=== PATIENT | female | born 1985 | race Native Hawaiian/Other Pacific Islander ===

== ENCOUNTER 2016-11-08 16:54 | Emergency (ER) | payer OTHER ==
[~2016-11-08 16:54] MED LIST: AUGM875T27 PO; NORCOTAB PO; SENN1TAB2 PO
[2016-11-08] MEDS ORDERED: hydrOXYzine 25 MG TAB As Ordered ONE (19:03)
--- NOTE | 2016-11-08 19:11 | EDDOCDS ---
Nurse's Notes [facility] Name: Alexus Olson Age: 31 yrs Sex: Female : 1985 Arrival Date: 11/08/2016 Time: 16:54 Bed BHU1 Private MD: Jennifer [facility] Diagnosis: Adjustment disorder with anxiety Presentation: 11/08 17:00 Presenting complaint: states: Increased anxiety denies SI, not sleeping well. mlb1 Mental Health Triage Level: Level 1- Pt displays no suicidal or homicidal ideations and does not appear to be a danger to self or others. Adult Sepsis Screening: The patient does not have new or worsening altered mentation. Patient's respiratory rate is less than 22. Systolic blood pressure is greater than 100. Patient has a qSOFA score of 0- Negative Sepsis Screen. Suicide/Homicide risk assessment- the patient denies having any suicidal and/or homicidal ideations and does not present with any other emotional, behavioral or mental health complaints. Status: The patient is a dependent. Transition of care: patient was not received from another setting of care. 17:00 Acuity: LEROY Level 3 mlb1 17:00 Method Of Arrival: Walkin/Carried/Asstd mlb1 Triage Assessment: 17:03 General: Appears well groomed, Behavior is drowsy, quiet. Pain: Denies pain. HIV mlb1 screening NA for this visit Offered previously. Neurological: Level of Consciousness is awake, alert, Oriented to person, place, time, Speech is normal. Respiratory: Airway is patent Respiratory effort is even, unlabored. Historical: - Allergies: no known allergies; - Home Meds: 1. Nexium 20 mg Oral cpDR 1 cap once daily - PMHx: Schizo-Affective Disorder; GERD; - PSHx: oral surgery; - Social history: Smoking status: Patient states was never smoker of tobacco. No barriers to communication noted, The patient speaks fluent French, Speaks appropriately for age. - Family history: Not pertinent. - : The pt / caregiver states he / she is not on anticoagulants. Home medication list is obtained from the patient. - Exposure Risk Screening:: None identified. Screenin:10 Screening information is obtained from the patient. Fall risk: No risks identified. slm Assistance ADL's: requires no assistance with activities of daily living. Abuse/DV Screen: The patient / caregiver reports he/she is: not in a situation that causes fear, pain or injury. Nutritional screening: No deficits noted. Advance Directives: Currently, there is no health care proxy. There is no active DNR order. There is no living will. There is no Power of Rail Car Unloader. Advance directive information has not previously been placed in an [facility] medical record. Further advance directive information is declined. home support is adequate. Assessment: 19:09 General: Appears in no apparent distress, Behavior is appropriate for age, quiet, slm tearful. Respiratory: Airway is patent Respiratory effort is even, unlabored. Derm: Skin is pink, warm & dry. Social Work Consult: 19:01 Social Work Note: Met pt at bedside regarding anxiety. 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 She is overwhelmed with studies and is not getting enough sleep. 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 She and spouse are requesting medication to help her rest due to some racing thoughts. Pt appears to be stressed at bedside and is very tearful. Pt adamantly denies SI and HI. Spouse at bedside who does not have any safety concerns and is requesting pt to be discharged. 19:08 Social Work Note: Referrals for outpt services was given at bedside and directed to ml4 follow up with Jennifer for further tx. Vital Signs: 16:57 BP 154 / 92; Pulse 82; Resp 16; Temp 99.3(T); Pulse Ox 100% on R/A; Weight 74.93 kg sew (M); Height 5 ft. 3 in. (160.02 cm); Pain 0/10; 18:52 BP 142 / 75; Pulse 104; Resp 20; Temp 98.2(O); Pulse Ox 100% ; Pain 0/10; mas 16:57 Body Mass Index 29.26 (74.93 kg, 160.02 cm) sew Vitals: 16:57 Log In Time: November 08, 2016 at 16:54. RN notified that patient meets Red Flag sew criteria. ED Course: 16:57 Patient visited by Yaa Jewell. sew 16:57 KEO Rodriguez is Private Physician. sew 16:57 Patient moved to Waiting sew 16:58 Patient visited by Yaa Jewell. sew 16:58 Patient moved to Pre RCE sew 17:00 Patient visited by Patricio Burt RN. mlb1 17:02 Triage Initiated mlb1 17:04 Patient visited by Patricio Burt RN. mlb1 17:04 Patient moved to [facility] mlb1 17:05 Report received from rn - psych. triage level #1, no obs. req. at this time. pjf 17:07 Yaa Coulter MD is Attending Physician. sd1 17:07 Patient visited by Yaa Coulter MD. sd1 17:17 Patient visited by Allan Brand Security Aide. pjf 17:38 Patient visited by Allan Brand Security Aide. pjf 17:57 Patient visited by Allan Brand Security Aide. pjf 18:08 Patient visited by Allan Brand Security Aide. pjf 18:19 [facility] Payment Agreement was scanned into [employer] and attached to record. lg 18:28 Patient visited by Allan Brand Security Aide. pjf 18:31 Patient name changed from Alexus\S\\S\Urban-Chen\S\ to Alexus\S\ \S\Urban-Chen. EDMS 18:43 Patient visited by Allan Brand Security Aide. pjf 18:45 Jennifer [facility] is Referral Physician. sd1 18:45 Referral list, As provided by [facility] is Referral Physician. sd1 19:07 PSA Outpatient Referrals was scanned into [employer] and attached to record. ml4 19:08 Ann Weiss LPN is Primary Nurse. slm 19:10 No IV's were initiated during this patient's visit. No procedures done that require slm assistance. 19:11 Patient visited by Ann Weiss LPN. slm 19:11 The patient / caregiver is instructed regarding the plan of care and ED course. slm Administered Medications: 19:09 Drug: hydrOXYzine 25 mg [hydroxyzine HCl 25 mg tablet (1 tabs)] {Note: home with pt.} slm Route: PO; Order Results: There are currently no results for this order. Outcome: 18:45 Discharge ordered by Provider. sd1 19:10 Discharge Assessment: Patient awake, alert and oriented x 3. No cognitive and/or slm functional deficits noted. Patient verbalized understanding of disposition instructions. patient administered narcotics - no. The following High Risk Discharge criteria are identified: None. Discharged to home ambulatory, with significant other. Condition: good. Discharge instructions given to patient, family, Instructed on discharge instructions, follow up and referral plans. medication usage, Demonstrated understanding of instructions, medications, Pt was receptive of discharge instructions/ teaching. Prescriptions given X 1. No special radiology studies were completed. Property :Personal belongings accompany Pt. 19:11 Patient left the ED. slm Signatures: Dispatcher [employer] EDMS Yaa Coulter MD MD sd1 Pricila Gonzalez, Reg Reg lg Allan Brand, Security Aide Patricio Ramirez RN RN mlb1 Ailyn Weston, PSA PSA ml4 Cristiano, Yaa Torres Stephanie,[place] RAILROAD ACCOUNTANT slm Corrections: (The following items were deleted from the chart) 18:50 18:44 COMPLETE BLOOD COUNT+LAB sent. sd1 EDMS MTDD
--- NOTE | 2016-11-08 19:11 | EDDOCDS ---
Physician Documentation [facility] Name: Alexus Olson Age: 31 yrs Sex: Female : 1985 Arrival Date: 11/08/2016 Time: 16:54 Bed BHU1 Private MD: YAQUELIN Rodriguez Disposition: 11/08/16 18:45 Discharged to Home/Self Care. Impression: Adjustment disorder with anxiety. - Condition is Stable. - Discharge Instructions: Adjustment Disorder. - Prescriptions for Hydroxyzine HCl 25 mg Oral Tablet - take 1 tablet by ORAL route at bedtime As needed; 6 tablet. - Medication Reconciliation, Local Pharmacy Hours form. - Follow up: YAQUELIN Rodriguez; When: Call to arrange an appointment. Follow up: Referral list, As provided by PFS; When: Call to arrange an appointment. - Problem is new. - Symptoms have improved. Historical: - Allergies: no known allergies; - Home Meds: 1. Nexium 20 mg Oral cpDR 1 cap once daily - PMHx: Schizo-Affective Disorder; GERD; - PSHx: oral surgery; - Social history: Smoking status: Patient states was never smoker of tobacco. No barriers to communication noted, The patient speaks fluent Lao, Speaks appropriately for age. - Family history: Not pertinent. - : The pt / caregiver states he / she is not on anticoagulants. Home medication list is obtained from the patient. - Exposure Risk Screening:: None identified. Vital Signs: 11/08 16:57 BP 154 / 92; Pulse 82; Resp 16; Temp 99.3(T); Pulse Ox 100% on R/A; Weight 74.93 kg / sew 165.19 lbs (M); Height 5 ft. 3 in. (160.02 cm); Pain 0/10; 18:52 BP 142 / 75; Pulse 104; Resp 20; Temp 98.2(O); Pulse Ox 100% ; Pain 0/10; mas 16:57 Body Mass Index 29.26 (74.93 kg, 160.02 cm) sew MDM: 17:18 Consult PFS/PSA/Grinding Wheel Operator ordered. sd1 17:18 Consult PFS/PSA/Grinding Wheel Operator: Patient's case requires discussion with on-call sd1 Psychiatrist ordered. 17:18 PSA/PFS to call Nursing Meter Reading Clerk, to enter patient data on [place] if patient sd1 involuntarily admitted or transferred for SI or HI ordered. 17:18 Confirm accurate psychiatric medication list and times of last dosage ordered. sd1 17:18 Detain Pt Until Medically/PFS Cleared ordered. sd1 18:15 Financial registration complete. lg 18:19 [facility] Payment Agreement was scanned into [employer] and attached to record. lg 18:48 hydrOXYzine 25 mg PO once; to go ordered. sd1 19:07 [facility] Outpatient Referrals was scanned into [employer] and attached to record. ml4 19:10 Consult PFS/PSA/Grinding Wheel Operator complete. cl 19:10 Consult PFS/PSA/Grinding Wheel Operator: Patient's case requires discussion with on-call cl Psychiatrist complete. 19:10 PSA/PFS to call Nursing Meter Reading Clerk, to enter patient data [place] if patient cl involuntarily admitted or transferred for SI or HI complete. Administered Medications: 19:09 Drug: hydrOXYzine 25 mg [hydroxyzine HCl 25 mg tablet (1 tabs)] {Note: home with pt.} slm Route: PO; Signatures: Dispatcher [employer] Yaa Diggs MD MD sd1 Stephon Villagomez, PSA PSA cl Pricila Gonzalez, Kevin Reg lg Patricio Burt, RN RN mlb1 Ailyn Weston, PSA PSA ml4 Ann Weiss LPN LPN slm The chart was reviewed and I authenticate all verbal orders and agree with the evaluation and treatment provided.Corrections: (The following items were deleted from the chart) 18:46 17:19 ACETAMINOPHEN LEVEL+LAB ordered. EDMS EDMS 18:46 17:19 BASIC METABOLIC PROFILE+LAB ordered. EDMS EDMS 18:46 17:19 ETHYL ALCOHOL (ETHANOL)+LAB ordered. EDMS EDMS 18:46 17:19 HCG, QUALITATIVE+LAB ordered. EDMS EDMS 18:48 17:19 DRUG EVAL TOXICOLOGY ED ONLY+LAB ordered. EDMS EDMS 18:48 17:19 LIVER PROFILE+LAB ordered. EDMS EDMS 18:48 17:19 SALICYLATE LEVEL+LAB ordered. EDMS EDMS 18:48 17:19 THYROID STIMULATING HORMONE+LAB ordered. EDMS EDMS 18:50 17:19 COMPLETE BLOOD COUNT+LAB ordered. EDMS EDMS Attachments: 18:19 [facility] Payment Agreement lg MTDD
[2016-11-09] MEDS ORDERED: HYDR25T PO (20:06)
[2016-11-09] MEDS ORDERED: MIRA3350 PO (20:06)
[2016-11-09] MEDS ORDERED: NEXI20CA PO (20:06)
--- NOTE | 2016-11-10 20:12 | EDDOCDS ---
Physician Documentation [facility] Name: Alexus Olson Age: 31 yrs Sex: Female : 1985 Arrival Date: 11/08/2016 Time: 16:54 Bed BHU1 Private MD: YAQUELIN Rodriguez Disposition: 11/08/16 18:45 Discharged to Home/Self Care. Impression: Adjustment disorder with anxiety. - Condition is Stable. - Discharge Instructions: Adjustment Disorder. - Prescriptions for Hydroxyzine HCl 25 mg Oral Tablet - take 1 tablet by ORAL route at bedtime As needed; 6 tablet. - Medication Reconciliation, Local Pharmacy Hours form. - Follow up: YAQUELIN Rodriguez; When: Call to arrange an appointment. Follow up: Referral list, As provided by PFS; When: Call to arrange an appointment. - Problem is new. - Symptoms have improved. Historical: - Allergies: no known allergies; - Home Meds: 1. Nexium 20 mg Oral cpDR 1 cap once daily - PMHx: Schizo-Affective Disorder; GERD; - PSHx: oral surgery; - Social history: Smoking status: Patient states was never smoker of tobacco. No barriers to communication noted, The patient speaks fluent Peruvian, Speaks appropriately for age. - Family history: Not pertinent. - : The pt / caregiver states he / she is not on anticoagulants. Home medication list is obtained from the patient. - Exposure Risk Screening:: None identified. Vital Signs: 11/08 16:57 BP 154 / 92; Pulse 82; Resp 16; Temp 99.3(T); Pulse Ox 100% on R/A; Weight 74.93 kg / sew 165.19 lbs (M); Height 5 ft. 3 in. (160.02 cm); Pain 0/10; 18:52 BP 142 / 75; Pulse 104; Resp 20; Temp 98.2(O); Pulse Ox 100% ; Pain 0/10; mas 16:57 Body Mass Index 29.26 (74.93 kg, 160.02 cm) sew MDM: 17:18 Consult PFS/PSA/Rubber Chemist ordered. sd1 17:18 Consult PFS/PSA/Rubber Chemist: Patient's case requires discussion with on-call sd1 Psychiatrist ordered. 17:18 PSA/PFS to call Nursing Litigation Specialist, to enter [place] data [place] if patient sd1 involuntarily admitted or transferred for SI or HI ordered. 17:18 Confirm accurate psychiatric medication list and times of last dosage ordered. sd1 17:18 Detain Pt Until Medically/PFS Cleared ordered. sd1 18:15 Financial registration complete. lg 18:19 [facility] Payment Agreement was scanned into [employer] and attached to record. lg 18:48 hydrOXYzine 25 mg PO once; to go ordered. sd1 19:07 PSA Outpatient Referrals was scanned into [employer] and attached to record. ml4 19:10 Consult PFS/PSA/Rubber Chemist complete. cl 19:10 Consult PFS/PSA/Rubber Chemist: Patient's case requires discussion with on-call cl Psychiatrist complete. 19:10 PSA/PFS to call Nursing Litigation Specialist, to enter [place] data [place] if patient cl involuntarily admitted or transferred for SI or HI complete. 11/09 12:20 T-Sheet-- Draft Copy was scanned into [employer] and attached to record. gb Administered Medications: 11/08 19:09 Drug: hydrOXYzine 25 mg [hydroxyzine HCl 25 mg tablet (1 tabs)] {Note: home with pt.} slm Route: PO; Signatures: Dispatcher [employer] EDMS Yaa Coulter MD MD sd1 Stephon Villagomez, PSA PSA cl Leona Singleton, Reg Reg gb Pricila Gonzalez, Reg Reg lg Patricio Burt RN RN mlb1 Ailyn Weston, PSA PSA ml4 Ann Weiss LPN FINANCIAL SERVICES PROFESSIONAL slm The chart was reviewed and I authenticate all verbal orders and agree with the evaluation and treatment provided.Corrections: (The following items were deleted from the chart) 18:46 17:19 ACETAMINOPHEN LEVEL+LAB ordered. EDMS EDMS 18:46 17:19 BASIC METABOLIC PROFILE+LAB ordered. EDMS EDMS 18:46 17:19 ETHYL ALCOHOL (ETHANOL)+LAB ordered. EDMS EDMS 18:46 17:19 HCG, QUALITATIVE+LAB ordered. EDMS EDMS 18:48 17:19 DRUG EVAL TOXICOLOGY ED ONLY+LAB ordered. EDMS EDMS 18:48 17:19 LIVER PROFILE+LAB ordered. EDMS EDMS 18:48 17:19 SALICYLATE LEVEL+LAB ordered. EDMS EDMS 18:48 17:19 THYROID STIMULATING HORMONE+LAB ordered. EDMS EDMS 18:50 17:19 COMPLETE BLOOD COUNT+LAB ordered. EDMS EDMS Attachments: 18:19 [facility] Payment Agreement lg 11/09 12:20 T-Sheet-- Draft Copy gb Chart Complete MTDD
--- NOTE | 2016-11-10 20:12 | EDDOCDS ---
Nurse's Notes [facility] Name: Alexus Olson Age: 31 yrs Sex: Female : 1985 Arrival Date: 11/08/2016 Time: 16:54 Bed BHU1 Private MD: Jennifer [facility] Diagnosis: Adjustment disorder with anxiety Presentation: 11/08 17:00 Presenting complaint: states: Increased anxiety denies SI, not sleeping well. mlb1 Mental Health Triage Level: Level 1- Pt displays no suicidal or homicidal ideations and does not appear to be a danger to self or others. Adult Sepsis Screening: The patient does not have new or worsening altered mentation. Patient's respiratory rate is less than 22. Systolic blood pressure is greater than 100. Patient has a qSOFA score of 0- Negative Sepsis Screen. Suicide/Homicide risk assessment- the patient denies having any suicidal and/or homicidal ideations and does not present with any other emotional, behavioral or mental health complaints. Status: The patient is a dependent. Transition of care: patient was not received from another setting of care. 17:00 Acuity: LEROY Level 3 mlb1 17:00 Method Of Arrival: Walkin/Carried/Asstd mlb1 Triage Assessment: 17:03 General: Appears well groomed, Behavior is drowsy, quiet. Pain: Denies pain. HIV mlb1 screening NA for this visit Offered previously. Neurological: Level of Consciousness is awake, alert, Oriented to person, place, time, Speech is normal. Respiratory: Airway is patent Respiratory effort is even, unlabored. Historical: - Allergies: no known allergies; - Home Meds: 1. Nexium 20 mg Oral cpDR 1 cap once daily - PMHx: Schizo-Affective Disorder; GERD; - PSHx: oral surgery; - Social history: Smoking status: Patient states was never smoker of tobacco. No barriers to communication noted, The patient speaks fluent Luxembourgish, Speaks appropriately for age. - Family history: Not pertinent. - : The pt / caregiver states he / she is not on anticoagulants. Home medication list is obtained from the patient. - Exposure Risk Screening:: None identified. Screenin:10 Screening information is obtained from the patient. Fall risk: No risks identified. slm Assistance ADL's: requires no assistance with activities of daily living. Abuse/DV Screen: The patient / caregiver reports he/she is: not in a situation that causes fear, pain or injury. Nutritional screening: No deficits noted. Advance Directives: Currently, there is no health care proxy. There is no active DNR order. There is no living will. There is no Power of Sintering Plant Supervisor. Advance directive information has not previously been placed in an [facility] medical record. Further advance directive information is declined. home support is adequate. Assessment: 19:09 General: Appears in no apparent distress, Behavior is appropriate for age, quiet, slm tearful. Respiratory: Airway is patent Respiratory effort is even, unlabored. Derm: Skin is pink, warm & dry. Social Work Consult: 19:01 Social Work Note: Met pt at bedside regarding anxiety. 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 She is overwhelmed with studies and is not getting enough sleep. 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 She and spouse are requesting medication to help her rest due to some racing thoughts. Pt appears to be stressed at bedside and is very tearful. Pt adamantly denies SI and HI. Spouse at bedside who does not have any safety concerns and is requesting pt to be discharged. 19:08 Social Work Note: Referrals for outpt services was given at bedside and directed to ml4 follow up with Jennifer for further tx. Vital Signs: 16:57 BP 154 / 92; Pulse 82; Resp 16; Temp 99.3(T); Pulse Ox 100% on R/A; Weight 74.93 kg sew (M); Height 5 ft. 3 in. (160.02 cm); Pain 0/10; 18:52 BP 142 / 75; Pulse 104; Resp 20; Temp 98.2(O); Pulse Ox 100% ; Pain 0/10; mas 16:57 Body Mass Index 29.26 (74.93 kg, 160.02 cm) sew Vitals: 16:57 Log In Time: November 08, 2016 at 16:54. RN notified that patient meets Red Flag sew criteria. ED Course: 16:57 Patient visited by Yaa Jewell. sew 16:57 KEO Rodriguez is Private Physician. sew 16:57 Patient moved to Waiting sew 16:58 Patient visited by Yaa Jewell. sew 16:58 Patient moved to Pre RCE sew 17:00 Patient visited by Patricio Burt RN. mlb1 17:02 Triage Initiated mlb1 17:04 Patient visited by Patricio Burt RN. mlb1 17:04 Patient moved to [facility] mlb1 17:05 Report received from rn - psych. triage level #1, no obs. req. at this time. pjf 17:07 Yaa Coulter MD is Attending Physician. sd1 17:07 Patient visited by Yaa Coulter MD. sd1 17:17 Patient visited by Allan Brand Security Aide. pjf 17:38 Patient visited by Allan Brand Security Aide. pjf 17:57 Patient visited by Allan Brand Security Aide. pjf 18:08 Patient visited by Allan Brand Security Aide. pjf 18:19 [facility] Payment Agreement was scanned into [employer] and attached to record. lg 18:28 Patient visited by Allan Brand Security Aide. pjf 18:31 Patient name changed from Alexus\S\\S\Urban-Chen\S\ to Alexus\S\ \S\Urban-Chen. EDMS 18:43 Patient visited by Allan Brand Security Aide. pjf 18:45 Jennifer [facility] is Referral Physician. sd1 18:45 Referral list, As provided by [facility] is Referral Physician. sd1 19:07 PSA Outpatient Referrals was scanned into [employer] and attached to record. ml4 19:08 Ann Weiss LPN is Primary Nurse. slm 19:10 No IV's were initiated during this patient's visit. No procedures done that require slm assistance. 19:11 Patient visited by Ann Weiss LPN. slm 19:11 The patient / caregiver is instructed regarding the plan of care and ED course. sl 11/09 12:20 T-Sheet-- Draft Copy was scanned into [employer] and attached to record. gb Administered Medications: 11/08 19:09 Drug: hydrOXYzine 25 mg [hydroxyzine HCl 25 mg tablet (1 tabs)] {Note: home with pt.} slm Route: PO; Order Results: There are currently no results for this order. Outcome: 18:45 Discharge ordered by Provider. sd1 19:10 Discharge Assessment: Patient awake, alert and oriented x 3. No cognitive and/or slm functional deficits noted. Patient verbalized understanding of disposition instructions. patient administered narcotics - no. The following High Risk Discharge criteria are identified: None. Discharged to home ambulatory, with significant other. Condition: good. Discharge instructions given to patient, family, Instructed on discharge instructions, follow up and referral plans. medication usage, Demonstrated understanding of instructions, medications, Pt was receptive of discharge instructions/ teaching. Prescriptions given X 1. No special radiology studies were completed. Property :Personal belongings accompany Pt. 19:11 Patient left the ED. slm Signatures: Dispatcher [employer] EDMS Yaa Coulter MD MD sd1 Leona Singleton, Reg Reg gb Carlos, Pricila, Reg Reg lg Cathie, Allan, Security Aide Patricio Ramirez RN RN mlb1 Ailyn Weston, PSA PSA ml4 Jeff Quinonez Sarah sew McIntyre, Stephanie,BUCKLE FRAME SHAPER BUCKLE FRAME SHAPER slm Corrections: (The following items were deleted from the chart) 18:50 18:44 COMPLETE BLOOD COUNT+LAB sent. sd1 EDMS Chart Complete MTDD
--- NOTE | 2016-11-10 20:12 | EDDOCDS ---
Physician Documentation [facility] Name: Alexus Olson Age: 31 yrs Sex: Female : 1985 Arrival Date: 11/08/2016 Time: 16:54 Bed BHU1 Private MD: YAQUELIN Rodriguez Disposition: 11/08/16 18:45 Discharged to Home/Self Care. Impression: Adjustment disorder with anxiety. - Condition is Stable. - Discharge Instructions: Adjustment Disorder. - Prescriptions for Hydroxyzine HCl 25 mg Oral Tablet - take 1 tablet by ORAL route at bedtime As needed; 6 tablet. - Medication Reconciliation, Local Pharmacy Hours form. - Follow up: YAQUELIN Rodriguez; When: Call to arrange an appointment. Follow up: Referral list, As provided by PFS; When: Call to arrange an appointment. - Problem is new. - Symptoms have improved. Historical: - Allergies: no known allergies; - Home Meds: 1. Nexium 20 mg Oral cpDR 1 cap once daily - PMHx: Schizo-Affective Disorder; GERD; - PSHx: oral surgery; - Social history: Smoking status: Patient states was never smoker of tobacco. No barriers to communication noted, The patient speaks fluent Moldovan, Speaks appropriately for age. - Family history: Not pertinent. - : The pt / caregiver states he / she is not on anticoagulants. Home medication list is obtained from the patient. - Exposure Risk Screening:: None identified. Vital Signs: 11/08 16:57 BP 154 / 92; Pulse 82; Resp 16; Temp 99.3(T); Pulse Ox 100% on R/A; Weight 74.93 kg / sew 165.19 lbs (M); Height 5 ft. 3 in. (160.02 cm); Pain 0/10; 18:52 BP 142 / 75; Pulse 104; Resp 20; Temp 98.2(O); Pulse Ox 100% ; Pain 0/10; mas 16:57 Body Mass Index 29.26 (74.93 kg, 160.02 cm) sew MDM: 17:18 Consult PFS/PSA/Mailing Machine Helper ordered. sd1 17:18 Consult PFS/PSA/Mailing Machine Helper: Patient's case requires discussion with on-call sd1 Psychiatrist ordered. 17:18 PSA/PFS to call Nursing Stone Cutter, to enter [place] data [place] if patient sd1 involuntarily admitted or transferred for SI or HI ordered. 17:18 Confirm accurate psychiatric medication list and times of last dosage ordered. sd1 17:18 Detain Pt Until Medically/PFS Cleared ordered. sd1 18:15 Financial registration complete. lg 18:19 [facility] Payment Agreement was scanned into [employer] and attached to record. lg 18:48 hydrOXYzine 25 mg PO once; to go ordered. sd1 19:07 PSA Outpatient Referrals was scanned into [employer] and attached to record. ml4 19:10 Consult PFS/PSA/Mailing Machine Helper complete. cl 19:10 Consult PFS/PSA/Mailing Machine Helper: Patient's case requires discussion with on-call cl Psychiatrist complete. 19:10 PSA/PFS to call Nursing Stone Cutter, to enter [place] data [place] if patient cl involuntarily admitted or transferred for SI or HI complete. 11/09 12:20 T-Sheet-- Draft Copy was scanned into [employer] and attached to record. gb Administered Medications: 11/08 19:09 Drug: hydrOXYzine 25 mg [hydroxyzine HCl 25 mg tablet (1 tabs)] {Note: home with pt.} slm Route: PO; Signatures: Dispatcher [employer] EDMS Yaa Coulter MD MD sd1 Stephon Villagomez, PSA PSA cl Leona Singleton, Reg Reg gb Pricila Gonzalez, Reg Reg lg Patricio Burt RN RN mlb1 Ailyn Weston, PSA PSA ml4 Ann Weiss LPN CONGRESSIONAL AIDE slm The chart was reviewed and I authenticate all verbal orders and agree with the evaluation and treatment provided.Corrections: (The following items were deleted from the chart) 18:46 17:19 ACETAMINOPHEN LEVEL+LAB ordered. EDMS EDMS 18:46 17:19 BASIC METABOLIC PROFILE+LAB ordered. EDMS EDMS 18:46 17:19 ETHYL ALCOHOL (ETHANOL)+LAB ordered. EDMS EDMS 18:46 17:19 HCG, QUALITATIVE+LAB ordered. EDMS EDMS 18:48 17:19 DRUG EVAL TOXICOLOGY ED ONLY+LAB ordered. EDMS EDMS 18:48 17:19 LIVER PROFILE+LAB ordered. EDMS EDMS 18:48 17:19 SALICYLATE LEVEL+LAB ordered. EDMS EDMS 18:48 17:19 THYROID STIMULATING HORMONE+LAB ordered. EDMS EDMS 18:50 17:19 COMPLETE BLOOD COUNT+LAB ordered. EDMS EDMS Attachments: 18:19 [facility] Payment Agreement lg 11/09 12:20 T-Sheet-- Draft Copy gb Chart Complete MTDD
== END 2016-11-08 19:11 | disposition home or self-care (01) ==
LOC: M ED 16:54
DX: F43.20 Adjustment disorder, unspecified (principal); F25.9 Schizoaffective disorder, unspecified; K21.9 Gastro-esophageal reflux disease without esophagitis; Z79.899 Other long term (current) drug therapy

== ENCOUNTER 2016-11-09 12:08 | Inpatient (IN) | payer OTHER ==
[~2016-11-09] VITALS: Ht 160 cm; Wt 73.5 kg
[2016-11-09 13:12] LABS: MEAN CORPUSCULAR HEMOGLOBIN 28.7 pg (27.0-33.0); MEAN CORPUSCULAR HGB CONC 33.2 g/dl (32.0-36.5); MEAN CORPUSCULAR VOLUME 86.6 fl (80.0-96.0); RED CELL DISTRIBUTION WIDTH 12.6 % (11.5-14.5); WHITE BLOOD COUNT 9.1 K/mm3 (4.0-10.0)
[2016-11-09 13:42] LABS: ALBUMIN/GLOBULIN RATIO 0.83 (1.00-1.93); ALKALINE PHOSPHATASE 70 U/L (45-117); ALT/SGPT 31 U/L (12-78); ANION GAP 10 MEQ/L (8-16); AST/SGOT 14 U/L (15-37); BILIRUBIN,DIRECT 0.2 MG/DL (0.0-0.2); BILIRUBIN,TOTAL 0.6 MG/DL (0.2-1.0); BLOOD UREA NITROGEN 12 MG/DL (7-18); CALCIUM LEVEL 8.6 MG/DL (8.5-10.1); CARBON DIOXIDE LEVEL 26 MEQ/L (21-32); CHLORIDE LEVEL 104 MEQ/L (98-107); CREATININE FOR GFR 0.81 MG/DL (0.55-1.02); GLOMERULAR FILTRATION RATE > 60.0 (>60); GLUCOSE, FASTING 86 MG/DL (70-105); POTASSIUM SERUM 3.5 MEQ/L (3.5-5.1); SODIUM LEVEL 140 MEQ/L (136-145); TOTAL PROTEIN 8.8 GM/DL (6.4-8.2)
[2016-11-09 15:39] LABS: AMPHETAMINES LEVEL URINE NEGATIVE (NEGATIVE); BENZODIAZEPINES URINE NEGATIVE (NEGATIVE); COCAINE METABOLITE URINE NEGATIVE (NEGATIVE); CONTROL LINE INT CTR LINE PRESENT; METHADONE URINE NEGATIVE (NEGATIVE); OPIATES URINE NEGATIVE (NEGATIVE); TRICYCLIC ANTIDEPRESS URINE NEGATIVE (NEGATIVE)
[2016-11-09] MEDS ORDERED: NEXI20CA PO (20:06)
[2016-11-09] MEDS ORDERED: HYDR25T PO (20:06)
[2016-11-09] MEDS ORDERED: MIRA3350 PO (20:06)
--- NOTE | 2016-11-09 21:27 | EDDOCDS ---
Physician Documentation [facility] Name: Alexus Olson Age: 31 yrs Sex: Female : 1985 Arrival Date: 11/09/2016 Time: 12:08 Bed [facility] Private MD: Galen Jackson J Disposition: 11/09/16 19:03 Hospitalization ordered by Braden Keen for Inpatient Admission. Preliminary diagnosis is Schizoaffective disorder, bipolar type. - Bed requested for Admit. - Status is Inpatient Admission. rw1 - Condition is Stable. - Problem is an acute exacerbation. - Symptoms are unchanged. Historical: - Allergies: no known allergies; - Home Meds: 1. Nexium 20 mg Oral cpDR 1 cap once daily 2. Fiber Therapy Laxative (husk) 0.52 gram oral cap 3. hydroxyzine HCl 25 mg Oral tab 1 tab nightly as needed - PMHx: Schizo-Affective Disorder; GERD; - PSHx: oral surgery; - Social history: Smoking status: Patient states was never smoker of tobacco. No barriers to communication noted, The patient speaks fluent Italian, Speaks appropriately for age. - Family history: Not pertinent. - : The pt / caregiver states he / she is not on anticoagulants. Home medication list is obtained from the patient. - Exposure Risk Screening:: None identified. EMT/DISPATCHER: 11/09 16:04 LMP 09/2016 ttb Vital Signs: 12:29 Pulse 95 MON; Pulse Ox 95% ; ttb 12:30 BP 136 / 90; Pulse 95 MON; Resp 20; Pulse Ox 100% on R/A; Pain 0/10; ttb 12:42 Temp 99.3(TE); Weight 72.57 kg / 159.99 lbs; Height 5 ft. 3 in. (160.02 cm); rn1 13:00 Pulse 87 MON; Pulse Ox 95% ; ttb 13:30 Pulse 111 MON; Resp 20 S; Pulse Ox 99% on R/A; ttb 15:30 BP 128 / 76 (auto/); ttb 15:30 Pulse 81 MON; Resp 18 S; Pulse Ox 99% on R/A; Pain 0/10; ttb 20:59 BP 136 / 82; Pulse 75; Resp 16; Temp 97.9(O); Pulse Ox 98% on R/A; Pain 0/10; rw1 12:42 Body Mass Index 28.34 (72.57 kg, 160.02 cm) rn1 MDM: 12:42 Consult PFS/PSA/Game Warden ordered. le 12:42 Consult PFS/PSA/Game Warden: Patient's case requires discussion with on-call le Psychiatrist ordered. 12:42 PSA/PFS to call Nursing Farmer Diversified Crops, to enter [place] if patient le involuntarily admitted or transferred for SI or HI ordered. 12:42 Confirm accurate psychiatric medication list and times of last dosage ordered. le 12:42 Detain Pt Until Medically/PFS Cleared ordered. le 12:42 IV Saline Lock ordered. le 12:43 Acetaminophen Level Ordered. EDMS 12:43 Basic Metabolic Profile Ordered. EDMS 12:43 Complete Blood Count Ordered. EDMS 12:43 Drug Eval Toxicology ED Only Ordered. EDMS 12:43 Ethyl Alcohol (ethanol) Ordered. EDMS 12:43 Liver Profile Ordered. EDMS 12:43 Salicylate Level Ordered. EDMS 12:43 Thyroid Stimulating Hormone Ordered. EDMS 12:43 ECG WITH READING ER PHYS+CARDIAG ordered. EDMS 14:16 Acetaminophen Level Reviewed. le 14:16 Complete Blood Count Reviewed. le 14:16 Liver Profile Reviewed. le 14:16 Salicylate Level Reviewed. le 14:16 Basic Metabolic Profile Reviewed. le 14:16 Ethyl Alcohol (ethanol) Reviewed. le 14:16 Thyroid Stimulating Hormone Reviewed. le 15:50 Drug Eval Toxicology ED Only Reviewed. le 15:52 The patient has been medically cleared for psychiatric evaluation, admission and/or le transfer. 16:01 [facility] [place] Payment Agreement was scanned into aCon and attached to record. jp5 16:01 Financial registration complete. jp5 17:14 REGULAR DIET PLASTIC STONE+DIET ordered. EDMS 18:09 Consult PFS/PSA/Game Warden complete. ms 18:09 Consult PFS/PSA/Game Warden: Patient's case requires discussion with on-call ms Psychiatrist complete. 18:09 PSA/PFS to call Nursing Farmer D[employer]ified Crops, to [place] if patient ms involuntarily admitted or transferred for SI or HI complete. 19:32 Admit to [facility]: ordered. EDMS 19:54 [facility] Legal paperwork was scanned into [employer]Con and attached to record. ms Signatures: Dispatcher [employer]Host EDMS Constance Gamez, RN RN srm Del, Aida, PSA PSA ms Slick,Carlos,CLIENT CARE CONSULTANT CLIENT CARE CONSULTANT rw1 Haydee Sanders, CHIEF OF PEDIATRIC UROLOGY CHIEF OF PEDIATRIC UROLOGY Chuyita Marquez RN RN hs1 Megan Brunner RN RN ttb Julio C Pretty jp5 The chart was reviewed and I authenticate all verbal orders and agree with the evaluation and treatment provided.Corrections: (The following items were deleted from the chart) 16:49 14:17 Straight cath ordered. diego salcido Attachments: 16:01 [facility] Payment Agreement jp5 MTDD
--- NOTE | 2016-11-09 21:28 | EDDOCDS ---
Nurse's Notes [facility] Name: Alexus Olson Age: 31 yrs Sex: Female : 1985 Arrival Date: 11/09/2016 Time: 12:08 Bed [facility] Private MD: Galen Jackson J Diagnosis: Schizoaffective disorder, bipolar type Presentation: 11/09 12:09 Presenting complaint: EMS states: pt admitted to take one of her husbands "avtar" meds srm and hydroxyzine that we prescribed yesterday. pt drowsy on arrival. told ems " i feel like im going to . i want to ". Adult Sepsis Screening: The patient does not have new or worsening altered mentation. Patient's respiratory rate is less than 22. Systolic blood pressure is greater than 100. Patient has a qSOFA score of 0- Negative Sepsis Screen. Suicide/Homicide risk assessment- The patient admits to and/or has been reported to be having suicidal ideations. Suicide/Homicide risk assessment- Status: The patient is a dependent. Transition of care: patient was not received from another setting of care. Care prior to arrival: Glucose check. 88. 12:09 Acuity: LEROY Level [address] [facility] 12:09 Method Of Arrival: Ambulance [facility] 12:12 Suicide/Homicide risk assessment- [facility] Triage Assessment: 12:12 General: Appears in no apparent distress, Behavior is listless. HIV screening NA for srm this visit Offered previously. 12:12 General: pt not answering questions without encouragement. [facility] SEAT MAKER: 16:04 LMP 09/2016 ttb Historical: - Allergies: no known allergies; - Home Meds: 1. Nexium 20 mg Oral cpDR 1 cap once daily 2. Fiber Therapy Laxative (husk) 0.52 gram oral cap 3. hydroxyzine HCl 25 mg Oral tab 1 tab nightly as needed - PMHx: Schizo-Affective Disorder; GERD; - PSHx: oral surgery; - Social history: Smoking status: Patient states was never smoker of tobacco. No barriers to communication noted, The patient speaks fluent Belgian, Speaks appropriately for age. - Family history: Not pertinent. - : The pt / caregiver states he / she is not on anticoagulants. Home medication list is obtained from the patient. - Exposure Risk Screening:: None identified. Screenin:30 Screening information is obtained from the patient. Fall risk: At risk due to apparent ttb chemical impairment, gait disturbance, The following interventions are performed due to a positive Fall Risk Screen: Fall Risk is added to Special Handling on the patient Summary Screen. A Fall Risk Bracelet was applied to the patient. Side Rails are placed in the up position. A Call Aaron is given with instruction to call for help when getting out of bed. Assistance ADL's: requires no assistance with activities of daily living. Abuse/DV Screen: The patient / caregiver reports he/she is: pt cannot be assessed for living situation at this time. Unable to Assess. Nutritional screening: No deficits noted. Advance Directives: Currently, there is no health care proxy. home support is adequate. Assessment: 12:35 General: Appears distressed, well nourished, well groomed, Behavior is crying, ttb inappropriate for age, listless, quiet, uncooperative. Pain: Denies pain. Neurological: Level of Consciousness is awake, lethargic, Speech is normal, slowed. Cardiovascular: Heart tones S1 S2 present Rhythm is sinus tachycardia Chest pain is denied. Respiratory: No deficits noted. Airway is patent Respiratory effort is even, unlabored, Respiratory pattern is regular, symmetrical, Breath sounds are clear bilaterally. Denies cough, shortness of breath. GI: Denies nausea, vomiting, pain. Derm: Skin is normal. Injury Description: No known injury. 12:35 Neurological: Pupils are pinpoint. ttb 12:40 General: pt states she took 1 hydroxyzine this morning and a "clonazapam or lorazapam" ttb last night. Denies any other substances this morning. Pt able to look at phone and recall password however will not look at me when I am addressing her. Slow to answer questions, answers appropriately, minimally. Requests who is in [facility]. . 13:30 Reassessment: Patient denies pain at this time. pt continues to rest on stretcher. NAD ttb noted. Continues to be tearful and intermittently crying. . 13:30 Cardiovascular: Rhythm is sinus tachycardia No ectopy. Chest pain is denied. ttb Respiratory: No deficits noted. Airway is patent Respiratory effort is even, unlabored. GI: Denies nausea, vomiting. 14:15 General: pt ambulated to with steady gait. continues to request . Forgetful. ttb Unable to give urine sample at this time. Missed cup. NAD noted. . 15:17 General: Pt ambulated to bathroom to provide urine specimen. Gait steady. Pt returned ld5 to room and is currently laying quietly in bed. Will continue to monitor. 16:02 Reassessment: Patient appears in no apparent distress at this time. Patient denies pain ttb at this time. Patient states feeling better. Patient states symptoms have improved. pt more appropriate now. Continues to ask for . Denies pain. . General: Appears in no apparent distress, comfortable. General: CN stated pt cleared for room change to U. Pain: Denies pain. Neurological: Level of Consciousness is awake, alert. Cardiovascular: Rhythm is sinus rhythm Chest pain is denied. Respiratory: Airway is patent Respiratory effort is even, unlabored, Denies cough, shortness of breath. GI: Denies nausea, vomiting, pain. 16:30 General: Appears Behavior is Smells of Denies arrived- he was unaware that pt srm took any of his medicine and when asked what it was he states clonazepam 0.5mg. BEEF TRIMMER aware and crying at this time but is supportive and attentive. 17:31 General: Appears in no apparent distress, comfortable, Behavior is cooperative, crying, pml fussy. Neurological: Level of Consciousness is awake, alert, Oriented to person, place, time. Cardiovascular: Capillary refill < 3 seconds. Respiratory: Airway is patent Respiratory effort is even, unlabored. Derm: Skin is pink, warm & dry. 18:44 General: resting on stretcher, resps easy and unlabored, SO at bedside. skin p/w/d. pml dinner provided. 19:50 General: Appears in no apparent distress, comfortable, Behavior is cooperative, crying. rw1 Pain: Denies pain. Neurological: Level of Consciousness is awake, alert, Oriented to person, place, time. Respiratory: Airway is patent Respiratory effort is even, unlabored. Derm: Skin is pink, warm & dry. normal. 20:49 Reassessment: Patient appears in no apparent distress at this time. Patient denies pain rw1 at this time. awake resting quietly on stretcher, safety maintained will monitor.. Mental Health Eval: 18:09 Mental health consult is initiated at 17:25. Status: The patient is a ms dependent. [facility] Behavioral Health: The patient is not an established patient of [facility] Behavioral Health. Referral Information: Evaluation referral is generated by The patient was referred for evaluation because Pt. was at school([employer]) when teacher noticed pt. not acting right and ambulance was called. Pt. told friend she has taken one hydroxyzine and one Lorazepam(spouses). 18:12 Subjective: The patients chief complaint is Pt. reports she has been feeling very ms overwhelmed, feeling as though something bad is going to happen. She reports that she is in [employer] program, is about to graduate with honors and does not deserve to be successful . She reports due to inability to sleep lately, she took pills today. She reports though should took pills before going to her exam today at [facility] because she just wanted to sleep. Pt. states she was trying to hurt self because she doesn't deserve to be successful. She stated she wanted to go to sleep and not wake up. Pt. reports having several 'breakdowns in the past( most recent 2010) and has schizoaffective diagnoses. She reports she has not taken medications for such since 2010 and until recently has been feeling well. . Delusions are paranoid, Patient's mood is anxious, depressed, Hallucinations are denied. Pt. spouse, Tristin, states that pt. has been having difficulty sleeping with increasing anxiety and paranoia since 10/27. He reports that she has been paranoid that people are talking about her and looking at her. Spouse states that pt. has been paranoid that he will leave her and that his parents who reside with them, are against her. He reports that for last couple of days, he has had to assist her with getting dressed and washing self because she has not been caring for herself as usual. 18:26 Mental Health history: Schizoaffective . Mental Health Admissions: Unable to Obtain. ms Current Outpatient Mental Health Services: None. Current living environment is The patient currently lives with his / her spouse, Tristin . Patient presents to Emergency Department with the following symptoms within the past 2 weeks: anxiety, decreased appetite, depressed mood, feelings of helplessness/hopelessness, paranoia, poor concentration, sleep disturbance - insomnia, suicidal ideation with attempt/gesture by pills. Substance abuse: E-cigs. Mental status exam: Patients appearance is appropriate, Patient's behavior is cooperative, Speech is normal. Affect is appropriate. Mood is depressed. Hallucinations are denied. Appetite is poor. Memory is fair. Energy level is normal. Content of thought is paranoid. pt. believes people are talking about her, looking at her Thought process is intact. Cognitive level is oriented to person, place, time and situation Patient's insight is fair. Judgement is poor. Rapport with interviewer is guarded. Suicidal Ideation present with a plan to kill self by pills. Homicidal ideation is denied. 19:19 Disposition: Medically cleared for disposition by Haydee DISLA Psychiatric Consult ms is performed by phone with Dr Braden Keen MD. [facility] Admission Criteria: The patient is experiencing suicidal ideation. The patient displays symptoms of severe psychiatric disorder resulting in disordered behavior and significant interference with his / her ability to maintain self care. Severe Anxiety. The patient requires continuous observation and/or control to protect self, others or property. Legal Status: Patient's legal status will be Emergency admission: . [place] Safe Act: [place] Safe Act is applicable to this patient. The patient poses a risk to self or other and the Nursing United States Attorney has been notified. He/She will enter the patient's data. Insurance Pre-Certification: Not Required. Vital Signs: 12:29 Pulse 95 MON; Pulse Ox 95% ; ttb 12:30 BP 136 / 90; Pulse 95 MON; Resp 20; Pulse Ox 100% on R/A; Pain 0/10; ttb 12:42 Temp 99.3(TE); Weight 72.57 kg; Height 5 ft. 3 in. (160.02 cm); rn1 13:00 Pulse 87 MON; Pulse Ox 95% ; ttb 13:30 Pulse 111 MON; Resp 20 S; Pulse Ox 99% on R/A; ttb 15:30 BP 128 / 76 (auto/); ttb 15:30 Pulse 81 MON; Resp 18 S; Pulse Ox 99% on R/A; Pain 0/10; ttb 20:59 BP 136 / 82; Pulse 75; Resp 16; Temp 97.9(O); Pulse Ox 98% on R/A; Pain 0/10; rw1 12:42 Body Mass Index 28.34 (72.57 kg, 160.02 cm) rn1 Vitals: 12:12 Log In Time N/A - ambulance arrival. [facility] ED Course: 12:09 Patient visited by Rosa Celestin, Rewrite Editor. lbd 12:09 Galen Jackson is Private Physician. lbd 12:09 Patient moved to Waiting lbd 12:09 Patient moved to 2 lbd 12:[address] [facility] 12:30 The patient / caregiver is instructed regarding the plan of care and ED course. Patient ttb has correct armband on for positive identification. Placed in psych safe attire. Bed in low position. Call light in reach. Side rails up X2. playground monitor on. Pulse ox on. NIBP on. 12:37 Haydee Sanders FNP is PHCP. le 12:46 Inserted saline lock: 20 gauge in right and blood collected. The patient tolerated the [facility] procedure well. wrist. 12:52 Patient visited by Haydee Sanders FNP. le 13:02 EKG done. (by ED staff). Reviewed by Haydee DISLA. rn1 13:26 Property removed, inventory done, secured in belongings bag- placed in locked storage dpm room. unknown who observed pt changing. Property inventoried 1 hour after pt was changed. Property left at charge station then brought to Security aide to be inventoried . 13:59 Patient visited by Megan Brunner RN. ttb 14:21 Patient visited by Megan Brunner RN. ttb 15:17 Drug Eval Toxicology ED Only Sent. ld5 15:18 Patient visited by Perla Hughes,SANDRA. ld5 15:30 Discontinued IV lock intact, bleeding controlled, pressure dressing applied, No ttb redness/swelling at site. No procedures done that require assistance. 16:01 [facility] Payment Agreement was scanned into [employer] and attached to record. jp5 16:04 Patient visited by Megan Brunner RN. ttb 16:31 Patient visited by Constance Gamez, SANDRA. srm 16:34 Patient visited by Megan Brunner RN. ttb 17:07 Patient name changed from Alexus\\S\\\\S\\Urban-Chen\\S\\ to Alexus\\S\\ \\S\\Urban-Chen. EDMS 17:13 Patient moved to [facility] pml 17:14 Patient visited by Radha Walsh,SANDRA. pml 17:18 Patient visited by José Antonio Hagan. dpm 17:30 Patient visited by José Antonio Hagan. dpm 17:32 Patient visited by Radha Walsh RN. pml 17:46 Patient visited by José Antonio Hagan. dpm 18:05 Patient visited by José Atnonio Hagan. dpm 18:31 Patient visited by José Antonio Hagan. dpm 18:44 Patient visited by Radha Walsh RN. pml 18:55 Patient visited by José Antonio Hagan. dpm 19:02 Carlos Kruger LPN is Primary Nurse. rw1 19:03 Braden Keen MD is Hospitalizing Provider. le 19:18 Patient visited by José Antonio Hagan. dpm 19:45 Patient visited by Warner Aldana. tr 19:54 [facility] Legal paperwork was scanned into [employer] and attached to record. ms 20:16 Patient visited by Warner Aldana. tr 21:00 Patient visited by Warner Aldana. tr Attachments: 19:54 E Legal paperwork ms Order Results: Lab Order: Acetaminophen Level; SPEC'M 11/09/16 12:46 Test: ACETAMINOPHEN LEVEL; Value: < 2.0; Range: 10.0-30.0; Abnormal: Below low normal; Units: UG/ML; Status: F Lab Order: Basic Metabolic Profile; SPEC'M 11/09/16 12:46 Test: GLUCOSE, FASTING; Value: 86; Range: 70-105; Units: MG/DL; Status: F Test: BLOOD UREA NITROGEN; Value: 12; Range: 7-18; Units: MG/DL; Status: F Test: CREATININE FOR GFR; Value: 0.81; Range: 0.55-1.02; Units: MG/DL; Status: F Test: GLOMERULAR FILTRATION RATE; Value: > 60.0; Range: >60; Status: F Test: SODIUM LEVEL; Value: 140; Range: 136-145; Units: MEQ/L; Status: F Test: POTASSIUM SERUM; Value: 3.5; Range: 3.5-5.1; Units: MEQ/L; Status: F Test: CHLORIDE LEVEL; Value: 104; Range: 98-107; Units: MEQ/L; Status: F Test: CARBON DIOXIDE LEVEL; Value: 26; Range: 21-32; Units: MEQ/L; Status: F Test: ANION GAP; Value: 10; Range: 8-16; Units: MEQ/L; Status: F Test: CALCIUM LEVEL; Value: 8.6; Range: 8.5-10.1; Units: MG/DL; Status: F Test Note: ; Units are mL/min/1.73 m2 Chronic Kidney Disease Staging per NKF: Stage I & II GFR >=60 Normal to Mildly Decreased Stage III GFR 30-59 Moderately Decreased Stage IV GFR 15-29 Severely Decreased Stage V GFR <15 Very Little GFR Left ESRD GFR <15 on COMMUNICATIONS MEDIA PROFESSOR Lab Order: Complete Blood Count; SPEC'M 11/09/16 12:46 Test: WHITE BLOOD COUNT; Value: 9.1; Range: 4.0-10.0; Units: K/mm3; Status: F Test: RED BLOOD COUNT; Value: 4.90; Range: 4.00-5.40; Units: M/mm3; Status: F Test: HEMOGLOBIN; Value: 14.1; Range: 12.0-16.0; Units: g/dl; Status: F Test: HEMATOCRIT; Value: 42.5; Range: 36.0-47.0; Units: %; Status: F Test: MEAN CORPUSCULAR VOLUME; Value: 86.6; Range: 80.0-96.0; Units: fl; Status: F Test: MEAN CORPUSCULAR HEMOGLOBIN; Value: 28.7; Range: 27.0-33.0; Units: pg; Status: F Test: MEAN CORPUSCULAR HGB CONC; Value: 33.2; Range: 32.0-36.5; Units: g/dl; Status: F Test: RED CELL DISTRIBUTION WIDTH; Value: 12.6; Range: 11.5-14.5; Units: %; Status: F Test: PLATELET COUNT, AUTOMATED; Value: 458; Range: 150-450; Abnormal: Above high normal; Units: k/mm3; Status: F Lab Order: Drug Eval Toxicology ED Only; SPEC'M 11/09/16 14:12 Test: AMPHETAMINES LEVEL URINE; Value: NEGATIVE; Range: NEGATIVE; Status: F Test: BARBITURATES URINE; Value: NEGATIVE; Range: NEGATIVE; Status: F Test: BENZODIAZEPINES URINE; Value: NEGATIVE; Range: NEGATIVE; Status: F Test: CANNABINOIDS URINE; Value: NEGATIVE; Range: NEGATIVE; Status: F Test: COCAINE METABOLITE URINE; Value: NEGATIVE; Range: NEGATIVE; Status: F Test: METHADONE URINE; Value: NEGATIVE; Range: NEGATIVE; Status: F Test: OPIATES URINE; Value: NEGATIVE; Range: NEGATIVE; Status: F Test: TRICYCLIC ANTIDEPRESS URINE; Value: NEGATIVE; Range: NEGATIVE; Status: F Test Note: ; ALL PRESUMPTIVE POSITIVE FINDINGS ARE UNCONFIRMED NORMAL VALUES THRESHOLD IN NG/ML AMPHETAMINES 1000 METHAMPHETAMINES 1000 BARBITURATES 300 BENZODIAZEPINES 300 CANNABINOIDS (THC) 50 COCAINE METABOLITE 300 METHADONE 300 OPIATES 300 PHENCYCLIDINE 25 TRICYCLIC ANTIDEPRESSANTS 1000 RESULTS ARE FOR MEDICAL PURPOSES ONLY. ALL URINE SPECIMENS WILL BE SAVED FOR 3 DAYS. IF CONFIRMATION OF A PRESUMPTIVE POSTIVE SCREEN RESULT IS DESIRED, CALL CHEMISTRY ([phone]) AND REQUEST URINE TO BE SENT TO REFERENCE LAB. FOR A LIST OF CLOSELY RELATED COMPOUNDS PLEASE CALL THE LAB. Lab Order: Ethyl Alcohol (ethanol); SPEC'M 11/09/16 12:46 Test: ETHYL ALCOHOL (ETHANOL); Value: < 0.003; Range: 0.000-0.010; Units: %; Status: F Lab Order: Liver Profile; SPEC'M 11/09/16 12:46 Test: AST/SGOT; Value: 14; Range: 15-37; Abnormal: Below low normal; Units: U/L; Status: F Test: ALT/SGPT; Value: 31; Range: 12-78; Units: U/L; Status: F Test: ALKALINE PHOSPHATASE; Value: 70; Range: 45-117; Units: U/L; Status: F Test: BILIRUBIN,TOTAL; Value: 0.6; Range: 0.2-1.0; Units: MG/DL; Status: F Test: BILIRUBIN,DIRECT; Value: 0.2; Range: 0.0-0.2; Units: MG/DL; Status: F Test: TOTAL PROTEIN; Value: 8.8; Range: 6.4-8.2; Abnormal: Above high normal; Units: GM/DL; Status: F Test: ALBUMIN; Value: 4.0; Range: 3.2-5.2; Units: GM/DL; Status: F Test: ALBUMIN/GLOBULIN RATIO; Value: 0.83; Range: 1.00-1.93; Abnormal: Below low normal; Status: F Lab Order: Salicylate Level; SPEC'M 11/09/16 12:46 Test: SALICYLATE LEVEL; Value: < 1.7; Range: 5.0-30.0; Abnormal: Below low normal; Units: MG/DL; Status: F Lab Order: Thyroid Stimulating Hormone; SPEC'M 11/09/16 12:46 Test: THYROID STIMULATING HORMONE; Value: 1.480; Range: 0.358-3.740; Units: uIU/ML; Status: F Outcome: 15:30 No special radiology studies were completed. ttb 19:03 Decision to Hospitalize by Provider. le 20:59 Discharge Assessment: Patient awake, alert and oriented x 3. No cognitive and/or rw1 functional deficits noted. Patient verbalized understanding of disposition instructions. patient administered narcotics - no. The following High Risk Discharge criteria are identified: Admitted to Psych accompanied by tech, via wheelchair, with chart. Condition: stable. 21:26 Patient left the ED. rw1 Signatures: Dispatcher [employer] EDMS Rosa Celestin, Rewrite Editor Unit lbd Constance Gamez RN RN [facility], Noam, PSA PSA jl Aida Mathis, PSA PSA ms Katya, Warner Carlos Tran LPN LPN rw1 Haydee Sanders, BEEF TRIMMER BEEF TRIMMER Perla Byrd RN RN ld5 Chuyita Eduardo RN RN hs1 Radha Walsh RN RN pml Marolf, Dustin dpMegan Wiseman RN RN ttCarlos Paris rn1 Julio C Pretty jp5 Corrections: (The following items were deleted from the chart) 18:26 18:12 Subjective: The patients chief complaint is Pt. reports she has been feeling very ms overwhelmed, feeling as though something bad is going to happen. She reports that she is in [employer] program, is about to graduate with honors and does not deserve to be successful . She reports due to inability to sleep lately, she took pills today. She reports though should took pills before going to her exam today at [facility] because she just wanted to sleep. Pt. states she was trying to hurt self because she doesn't deserve to be successful. She stated she wanted to go to sleep and not wake up. Pt. reports having several 'breakdowns in the past( most recent 2010) and has schizoaffective diagnoses.. ms : 19:10 Disposition: Medically cleared for disposition by Haydee Sanders BEEF TRIMMER Psychiatric ms Consult is performed by phone with Dr Braden Keen MD 19:10 [facility] Admission Criteria: The patient is experiencing suicidal ideation. The ms patient requires continuous observation and/or control to protect self, others or property. : 19:10 Legal Status: Patient's legal status will be Emergency admission: .39. key ms 19:10 [place] Safe Act: [place] Safe Act is applicable to this patient. The patient poses a ms risk to self or other and the Nursing United States Attorney has been notified. He/She will enter the patient's data. 19:10 Insurance Pre-Certification: Not Required, key ms MTDD
[2016-11-09] MEDS ORDERED: MIRALAX *UNIT DOSE* 17GM PACKET PO PRN (22:15)
[2016-11-09] MEDS ORDERED: MAALOX 30 ML SUSP *UDC PO PRN (22:15)
[2016-11-09] MEDS ORDERED: MOM 30ML SUSPENSION UDC PO PRN (22:15)
[2016-11-09] MEDS ORDERED: ACETAMINOPHEN TAB 650MG DOSE (2X325MG) PO PRN (22:15)
[2016-11-10] MEDS: traZODone 50 MG TAB PO PRN (00:35)
--- NOTE | 2016-11-10 04:40 | HPE ---
DATE OF ADMISSION: 11/09/2016 HISTORY OF PRESENT ILLNESS: Please refer to psychiatric history and evaluation for further details on this admission. This examination and history is intended for medical issues, which may need treatment, followup or consult on this 31-year-old female. ALLERGIES: No known allergies. SOCIAL HISTORY: She is . 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 She was acting strangely there today and was brought to the emergency room. Ethyl alcohol (EtOH) none. Smokes electronic (E) cigarettes. Recreational drug use: None. PAST MEDICAL HISTORY: 1. Schizoaffective disorder. 2. Gastroesophageal reflux disease (GERD). PAST SURGICAL HISTORY: 1. Oral surgery. 2. Appendectomy. HOME MEDICATIONS: - Nexium 20 mg by mouth daily - MiraLAX one packet 17 grams by mouth daily as needed for constipation - hydroxyzine 25 mg by mouth nightly as needed for anxiety FAMILY HISTORY: Noncontributory. LABORATORY STUDIES: WBC 9.1, hemoglobin 14.1, hematocrit 42.5, platelets 458. Electrolytes normal. Toxicology screen negative. REVIEW OF SYSTEMS: Patient was crying, but she did answer a few simple questions. She denied any headache, nausea, vomiting, diarrhea. No chest pain or shortness of breath. She allowed us a limited physical exam. PHYSICAL EXAMINATION: 31-year-old female who is quiet and crying at times. Height 63 inches, weight 72.57 kg, body mass index (BMI) 28.3. Blood pressure 155/90. Patient was alert and oriented to person. Neck was supple without lymphadenopathy. No thyromegaly, no goiter. Chest was clear to auscultation without wheeze or retraction. Heart was regular. She moved all extremities equally well, spontaneously with purpose. She was assisted into lie down. She was crying less. Skin was warm and dry. IMPRESSION: 1. Psychiatric plan per psychiatry. 2. History of gastroesophageal reflux disease (GERD). Will continue Nexium. 3. Will recheck blood pressure when patient is less upset.
[2016-11-10 06:46] VITALS: BP 121/67
--- NOTE | 2016-11-10 08:07 | ECGEPIP ---
Stationary ECG Study [facility] - ED Test Date: 2016-11-09 Pat Name: JESUS FORD Department: Room: - Gender: F Lead Web Developer: : 1985 Requested By: DAT DISLA Order Number: [id number] Reading MD: Yaa Coulter Measurements Intervals [place] Rate: 85 P: 51 VA: 128 QRS: 68 QRSD: 89 T: -8 QT: 353 QTc: 421 Interpretive Statements SINUS RHYTHM NONSPECIFIC T-WAVE ABNORMALITY NO PRIOR FOR COMPARISON Electronically Signed On 11-10-2016 8:06:42 EST by Yaa Coulter
[2016-11-10] MEDS: hydrOXYzine 25 MG TAB PO PRN (08:56)
[2016-11-10] MEDS ORDERED: CitaloPRAM (CeleXA) 10 MG TABLET PO SCH (09:00)
[2016-11-10] MEDS: PANTOPRAZOLE 20 MG TAB PO SCH (09:00)
[2016-11-10] MEDS: risperiDONE 2 MG TAB PO SCH ×2 (12:55→22:23)
[2016-11-10 18:00] VITALS: BP 137/91
--- NOTE | 2016-11-10 19:21 | MHHPE ---
DATE OF ADMISSION: 11/09/2016 LEGAL STATUS ON ADMISSION: 9.39 legal status CHIEF COMPLAINT: The patient is selectively mute. HISTORY OF PRESENT ILLNESS: 31-year-old female with a history of schizoaffective disorder, admitted to our unit on a 9.39 legal status. 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 During the evaluation in the emergency room, it is stated that the patient is feeling "very overwhelmed" as though something bad was going to happen. She is in the [employer] program and is about to graduate with honors. The patient reports an inability to sleep lately. She took pills today before going to her examination at [facility]. The patient stated that she wanted to go to sleep and not wake up. Also, that she does not deserve to be successful. The patient was treated for schizoaffective disorder in 2010, but since then has not been in treatment or taking medications and apparently doing well. The patient reported paranoid delusions for a couple of days. The patient has been needing to get assistance for getting dressed and has not been caring for herself as usual. Her spouse Tristin said that she has been having difficulty sleeping, having increasing anxiety and paranoia since 10/27/2016. She has been paranoid about him leaving her or her parents who live with them that she believes that they are against her. Tristin said that the patient has been anxious and depressed. During the interview today, the patient is sitting up in the bed. She is selectively mute and unable to answer questions. I could not gather any information from the patient today. PSYCHIATRIC HISTORY: As above. According to the chart, the patient has schizoaffective disorder. PAST MEDICAL HISTORY: According to the chart, the patient suffers from gastroesophageal reflux disease (GERD) and is on Nexium 20 mg daily. No information could be gathered from the patient. FAMILY HISTORY: Unable to obtain. SOCIAL HISTORY: Unable to obtain. SUBSTANCE ABUSE HISTORY: Unable to obtain. REVIEW OF SYSTEMS: The patient is uncooperative. PHYSICAL EXAMINATION: As per physician orthotics assistant. LABORATORY DATA: Complete blood count (CBC) is unremarkable except platelet count of 458. CMP is unremarkable. TSH within normal limits. Urine drug screen is negative. Blood alcohol level is negative. MENTAL STATUS EXAMINATION: The patient is dressed in [facility]. The patient is selectively mute. Not able to cooperate with mental status examination. DIAGNOSES: AXIS I: Schizoaffective disorder, by history. AXIS II: Deferred. AXIS III: Gastroesophageal reflux disease (GERD). INITIAL TREATMENT PLAN: The patient was admitted on a 9.39 legal status. Complete history could not be obtained because the patient is not cooperative. With her permission, family will be contacted and database will be expanded. Her medication regimen will be reviewed and accordingly. She will be provided with protective environment. She will be treated with individual, group and milieu therapy. She will also receive supportive psychoeducation. Discharge planning will commence immediately. Length of stay will be between 7 and 10 days. Outpatient followup will be strongly recommended. The treatment plan will focus initially on depression, altered thoughts, altered perceptions, self care deficit.
[2016-11-11 06:00] VITALS: BP 136/71
[2016-11-11 07:48] LABS: MEAN CORPUSCULAR HGB CONC 31.7 g/dl (32.0-36.5); RED CELL DISTRIBUTION WIDTH 13.5 % (11.5-14.5); WHITE BLOOD COUNT 8.4 K/mm3 (4.0-10.0)
[2016-11-11 07:53] LABS: MEAN CORPUSCULAR VOLUME 91.6 fl (80.0-96.0)
[2016-11-11 08:03] LABS: ALBUMIN 3.6 GM/DL (3.2-5.2); ALBUMIN/GLOBULIN RATIO 0.97 (1.00-1.93); ALKALINE PHOSPHATASE 68 U/L (45-117); ALT/SGPT 25 U/L (12-78); ANION GAP 9 MEQ/L (8-16); AST/SGOT 12 U/L (15-37); BILIRUBIN,TOTAL 0.8 MG/DL (0.2-1.0); BLOOD UREA NITROGEN 14 MG/DL (7-18); CALCIUM LEVEL 8.9 MG/DL (8.5-10.1); CARBON DIOXIDE LEVEL 27 MEQ/L (21-32); CHLORIDE LEVEL 103 MEQ/L (98-107); CREATININE FOR GFR 0.81 MG/DL (0.55-1.02); GLOMERULAR FILTRATION RATE > 60.0 (>60); GLUCOSE, FASTING 80 MG/DL (70-105); POTASSIUM SERUM 3.9 MEQ/L (3.5-5.1); SODIUM LEVEL 139 MEQ/L (136-145); TOTAL PROTEIN 7.3 GM/DL (6.4-8.2)
[2016-11-11] MEDS: PANTOPRAZOLE 20 MG TAB PO SCH ×3 (10:08→10:14)
[2016-11-11] MEDS: CitaloPRAM (CeleXA) 20 MG TAB PO SCH ×2 (10:08→10:14)
[2016-11-11] MEDS: risperiDONE 2 MG TAB PO SCH ×3 (10:08→21:08)
[2016-11-11 18:00] VITALS: BP 122/68
[2016-11-11] MEDS: traZODone 50 MG TAB PO PRN (21:08)
--- NOTE | 2016-11-11 22:27 | EDDOCDS ---
Nurse's Notes [facility] Name: Alexus Olson Age: 31 yrs Sex: Female : 1985 Arrival Date: 11/09/2016 Time: 12:08 Bed [facility] Private MD: Galen Jackson J Diagnosis: Schizoaffective disorder, bipolar type Presentation: 11/09 12:09 Presenting complaint: EMS states: pt admitted to take one of her husbands "avtar" meds srm and hydroxyzine that we prescribed yesterday. pt drowsy on arrival. told ems " i feel like im going to . i want to ". Adult Sepsis Screening: The patient does not have new or worsening altered mentation. Patient's respiratory rate is less than 22. Systolic blood pressure is greater than 100. Patient has a qSOFA score of 0- Negative Sepsis Screen. Suicide/Homicide risk assessment- The patient admits to and/or has been reported to be having suicidal ideations. Suicide/Homicide risk assessment- Status: The patient is a dependent. Transition of care: patient was not received from another setting of care. Care prior to arrival: Glucose check. 88. 12:09 Acuity: LEROY Level 3 [facility] 12:09 Method Of Arrival: Ambulance [facility] 12:12 Suicide/Homicide risk assessment- [facility] Triage Assessment: 12:12 General: Appears in no apparent distress, Behavior is listless. HIV screening NA for srm this visit Offered previously. 12:12 General: pt not answering questions without encouragement. [facility] AUDIO VISUAL SECRETARY: 16:04 LMP 09/2016 ttb Historical: - Allergies: no known allergies; - Home Meds: 1. Nexium 20 mg Oral cpDR 1 cap once daily 2. Fiber Therapy Laxative (husk) 0.52 gram oral cap 3. hydroxyzine HCl 25 mg Oral tab 1 tab nightly as needed - PMHx: Schizo-Affective Disorder; GERD; - PSHx: oral surgery; - Social history: Smoking status: Patient states was never smoker of tobacco. No barriers to communication noted, The patient speaks fluent Nauruan, Speaks appropriately for age. - Family history: Not pertinent. - : The pt / caregiver states he / she is not on anticoagulants. Home medication list is obtained from the patient. - Exposure Risk Screening:: None identified. Screenin:30 Screening information is obtained from the patient. Fall risk: At risk due to apparent ttb chemical impairment, gait disturbance, The following interventions are performed due to a positive Fall Risk Screen: Fall Risk is added to Special Handling on the patient Summary Screen. A Fall Risk Bracelet was applied to the patient. Side Rails are placed in the up position. A Call Aaron is given with instruction to call for help when getting out of bed. Assistance ADL's: requires no assistance with activities of daily living. Abuse/DV Screen: The patient / caregiver reports he/she is: pt cannot be assessed for living situation at this time. Unable to Assess. Nutritional screening: No deficits noted. Advance Directives: Currently, there is no health care proxy. home support is adequate. Assessment: 12:35 General: Appears distressed, well nourished, well groomed, Behavior is crying, ttb inappropriate for age, listless, quiet, uncooperative. Pain: Denies pain. Neurological: Level of Consciousness is awake, lethargic, Speech is normal, slowed. Cardiovascular: Heart tones S1 S2 present Rhythm is sinus tachycardia Chest pain is denied. Respiratory: No deficits noted. Airway is patent Respiratory effort is even, unlabored, Respiratory pattern is regular, symmetrical, Breath sounds are clear bilaterally. Denies cough, shortness of breath. GI: Denies nausea, vomiting, pain. Derm: Skin is normal. Injury Description: No known injury. 12:35 Neurological: Pupils are pinpoint. ttb 12:40 General: pt states she took 1 hydroxyzine this morning and a "clonazapam or lorazapam" ttb last night. Denies any other substances this morning. Pt able to look at phone and recall password however will not look at me when I am addressing her. Slow to answer questions, answers appropriately, minimally. Requests who is in [facility]. . 13:30 Reassessment: Patient denies pain at this time. pt continues to rest on stretcher. NAD ttb noted. Continues to be tearful and intermittently crying. . 13:30 Cardiovascular: Rhythm is sinus tachycardia No ectopy. Chest pain is denied. ttb Respiratory: No deficits noted. Airway is patent Respiratory effort is even, unlabored. GI: Denies nausea, vomiting. 14:15 General: pt ambulated to with steady gait. continues to request . Forgetful. ttb Unable to give urine sample at this time. Missed cup. NAD noted. . 15:17 General: Pt ambulated to bathroom to provide urine specimen. Gait steady. Pt returned ld5 to room and is currently laying quietly in bed. Will continue to monitor. 16:02 Reassessment: Patient appears in no apparent distress at this time. Patient denies pain ttb at this time. Patient states feeling better. Patient states symptoms have improved. pt more appropriate now. Continues to ask for . Denies pain. . General: Appears in no apparent distress, comfortable. General: CN stated pt cleared for room change to U. Pain: Denies pain. Neurological: Level of Consciousness is awake, alert. Cardiovascular: Rhythm is sinus rhythm Chest pain is denied. Respiratory: Airway is patent Respiratory effort is even, unlabored, Denies cough, shortness of breath. GI: Denies nausea, vomiting, pain. 16:30 General: Appears Behavior is Smells of Denies arrived- he was unaware that pt srm took any of his medicine and when asked what it was he states clonazepam 0.5mg. MYCOLOGIST aware and crying at this time but is supportive and attentive. 17:31 General: Appears in no apparent distress, comfortable, Behavior is cooperative, crying, pml fussy. Neurological: Level of Consciousness is awake, alert, Oriented to person, place, time. Cardiovascular: Capillary refill < 3 seconds. Respiratory: Airway is patent Respiratory effort is even, unlabored. Derm: Skin is pink, warm & dry. 18:44 General: resting on stretcher, resps easy and unlabored, SO at bedside. skin p/w/d. pml dinner provided. 19:50 General: Appears in no apparent distress, comfortable, Behavior is cooperative, crying. rw1 Pain: Denies pain. Neurological: Level of Consciousness is awake, alert, Oriented to person, place, time. Respiratory: Airway is patent Respiratory effort is even, unlabored. Derm: Skin is pink, warm & dry. normal. 20:49 Reassessment: Patient appears in no apparent distress at this time. Patient denies pain rw1 at this time. awake resting quietly on stretcher, safety maintained will monitor.. Mental Health Eval: 18:09 Mental health consult is initiated at 17:25. Status: The patient is a ms dependent. [facility] Behavioral Health: The patient is not an established patient of [facility] Behavioral Health. Referral Information: Evaluation referral is generated by The patient was referred for evaluation because Pt. was at school([employer]) when teacher noticed pt. not acting right and ambulance was called. Pt. told friend she has taken one hydroxyzine and one Lorazepam(spouses). 18:12 Subjective: The patients chief complaint is Pt. reports she has been feeling very ms overwhelmed, feeling as though something bad is going to happen. She reports that she is in [employer] program, is about to graduate with honors and does not deserve to be successful . She reports due to inability to sleep lately, she took pills today. She reports though should took pills before going to her exam today at [facility] because she just wanted to sleep. Pt. states she was trying to hurt self because she doesn't deserve to be successful. She stated she wanted to go to sleep and not wake up. Pt. reports having several 'breakdowns in the past( most recent 2010) and has schizoaffective diagnoses. She reports she has not taken medications for such since 2010 and until recently has been feeling well. . Delusions are paranoid, Patient's mood is anxious, depressed, Hallucinations are denied. Pt. spouse, Tristin, states that pt. has been having difficulty sleeping with increasing anxiety and paranoia since 10/27. He reports that she has been paranoid that people are talking about her and looking at her. Spouse states that pt. has been paranoid that he will leave her and that his parents who reside with them, are against her. He reports that for last couple of days, he has had to assist her with getting dressed and washing self because she has not been caring for herself as usual. 18:26 Mental Health history: Schizoaffective . Mental Health Admissions: Unable to Obtain. ms Current Outpatient Mental Health Services: None. Current living environment is The patient currently lives with his / her spouse, Tristin . Patient presents to Emergency Department with the following symptoms within the past 2 weeks: anxiety, decreased appetite, depressed mood, feelings of helplessness/hopelessness, paranoia, poor concentration, sleep disturbance - insomnia, suicidal ideation with attempt/gesture by pills. Substance abuse: E-cigs. Mental status exam: Patients appearance is appropriate, Patient's behavior is cooperative, Speech is normal. Affect is appropriate. Mood is depressed. Hallucinations are denied. Appetite is poor. Memory is fair. Energy level is normal. Content of thought is paranoid. pt. believes people are talking about her, looking at her Thought process is intact. Cognitive level is oriented to person, place, time and situation Patient's insight is fair. Judgement is poor. Rapport with interviewer is guarded. Suicidal Ideation present with a plan to kill self by pills. Homicidal ideation is denied. 19:19 Disposition: Medically cleared for disposition by Haydee DISLA Psychiatric Consult ms is performed by phone with Dr Braden Keen MD. [facility] Admission Criteria: The patient is experiencing suicidal ideation. The patient displays symptoms of severe psychiatric disorder resulting in disordered behavior and significant interference with his / her ability to maintain self care. Severe Anxiety. The patient requires continuous observation and/or control to protect self, others or property. Legal Status: Patient's legal status will be Emergency admission: . [place] Safe Act: [place] Safe Act is applicable to this patient. The patient poses a risk to self or other and the Nursing Dragger Out has been notified. He/She will enter the patient's data. Insurance Pre-Certification: Not Required. Vital Signs: 12:29 Pulse 95 MON; Pulse Ox 95% ; ttb 12:30 BP 136 / 90; Pulse 95 MON; Resp 20; Pulse Ox 100% on R/A; Pain 0/10; ttb 12:42 Temp 99.3(TE); Weight 72.57 kg; Height 5 ft. 3 in. (160.02 cm); rn1 13:00 Pulse 87 MON; Pulse Ox 95% ; ttb 13:30 Pulse 111 MON; Resp 20 S; Pulse Ox 99% on R/A; ttb 15:30 BP 128 / 76 (auto/); ttb 15:30 Pulse 81 MON; Resp 18 S; Pulse Ox 99% on R/A; Pain 0/10; ttb 20:59 BP 136 / 82; Pulse 75; Resp 16; Temp 97.9(O); Pulse Ox 98% on R/A; Pain 0/10; rw1 12:42 Body Mass Index 28.34 (72.57 kg, 160.02 cm) rn1 Vitals: 12:12 Log In Time N/A - ambulance arrival. [facility] ED Course: 12:09 Patient visited by Rosa Celestin, Clothing And Textiles Teacher. lbd 12:09 Galen Jackson is Private Physician. lbd 12:09 Patient moved to Waiting lbd 12:09 Patient moved to 2 lbd 12:11 Triage Initiated [facility] 12:30 The patient / caregiver is instructed regarding the plan of care and ED course. Patient ttb has correct armband on for positive identification. Placed in psych safe attire. Bed in low position. Call light in reach. Side rails up X2. property assessment monitor on. Pulse ox on. NIBP on. 12:37 Haydee Sanders FNP is PHCP. le 12:46 Inserted saline lock: 20 gauge in right and blood collected. The patient tolerated the [facility] procedure well. wrist. 12:52 Patient visited by Haydee Sanders FNP. le 13:02 EKG done. (by ED staff). Reviewed by Haydee DISLA. rn1 13:26 Property removed, inventory done, secured in belongings bag- placed in locked storage dpm room. unknown who observed pt changing. Property inventoried 1 hour after pt was changed. Property left at charge station then brought to Security aide to be inventoried . 13:59 Patient visited by Megan Brunner RN. ttb 14:21 Patient visited by Megan Brunner RN. ttb 15:17 Drug Eval Toxicology ED Only Sent. ld5 15:18 Patient visited by Perla Hughes,SANDRA. ld5 15:30 Discontinued IV lock intact, bleeding controlled, pressure dressing applied, No ttb redness/swelling at site. No procedures done that require assistance. 16:01 [facility] Payment Agreement was scanned into [employer] and attached to record. jp5 16:04 Patient visited by Megan Brunner RN. ttb 16:31 Patient visited by Constance Gamez, SANDRA. srm 16:34 Patient visited by Megan Brunner RN. ttb 17:07 Patient name changed from Alexus\\S\\\\S\\Urban-Chen\\S\\ to Alexus\\S\\ \\S\\Urban-Chen. EDMS 17:13 Patient moved to [facility] pml 17:14 Patient visited by Radha Walsh,SANDRA. pml 17:18 Patient visited by José Antonio Hagan. dpm 17:30 Patient visited by José Antonio Hagan. dpm 17:32 Patient visited by Radha Walsh RN. pml 17:46 Patient visited by José Antonio Hagan. dpm 18:05 Patient visited by José Antonio Hagan. dpm 18:31 Patient visited by José Antonio Hagan. dpm 18:44 Patient visited by Radha Walsh RN. pml 18:55 Patient visited by José Antonio Hagan. dpm 19:02 Carlos Kruger LPN is Primary Nurse. rw1 19:03 Braden Keen MD is Hospitalizing Provider. le 19:18 Patient visited by José Antonio Hagan. dpm 19:45 Patient visited by Warner Aldana. tr 19:54 E Legal paperwork was scanned into [employer] and attached to record. ms 20:16 Patient visited by Warner Aldana. tr 21:00 Patient visited by Warner Aldana. tr 11/10 12:56 T-Sheet-- Draft Copy was scanned into [employer] and attached to record. gb 12:56 ECG/EKG was scanned into [employer] and attached to record. gb 12:56 Trend VS was scanned into [employer] and attached to record. gb Attachments: 19:54 E Legal paperwork ms 12:56 Trend VS gb Order Results: Lab Order: Acetaminophen Level; SPEC'M 11/09/16 12:46 Test: ACETAMINOPHEN LEVEL; Value: < 2.0; Range: 10.0-30.0; Abnormal: Below low normal; Units: UG/ML; Status: F Lab Order: Basic Metabolic Profile; SPEC'M 11/09/16 12:46 Test: GLUCOSE, FASTING; Value: 86; Range: 70-105; Units: MG/DL; Status: F Test: BLOOD UREA NITROGEN; Value: 12; Range: 7-18; Units: MG/DL; Status: F Test: CREATININE FOR GFR; Value: 0.81; Range: 0.55-1.02; Units: MG/DL; Status: F Test: GLOMERULAR FILTRATION RATE; Value: > 60.0; Range: >60; Status: F Test: SODIUM LEVEL; Value: 140; Range: 136-145; Units: MEQ/L; Status: F Test: POTASSIUM SERUM; Value: 3.5; Range: 3.5-5.1; Units: MEQ/L; Status: F Test: CHLORIDE LEVEL; Value: 104; Range: 98-107; Units: MEQ/L; Status: F Test: CARBON DIOXIDE LEVEL; Value: 26; Range: 21-32; Units: MEQ/L; Status: F Test: ANION GAP; Value: 10; Range: 8-16; Units: MEQ/L; Status: F Test: CALCIUM LEVEL; Value: 8.6; Range: 8.5-10.1; Units: MG/DL; Status: F Test Note: ; Units are mL/min/1.73 m2 Chronic Kidney Disease Staging per NKF: Stage I & II GFR >=60 Normal to Mildly Decreased Stage III GFR 30-59 Moderately Decreased Stage IV GFR 15-29 Severely Decreased Stage V GFR <15 Very Little GFR Left ESRD GFR <15 on [employer] Lab Order: Complete Blood Count; SPEC'M 11/09/16 12:46 Test: WHITE BLOOD COUNT; Value: 9.1; Range: 4.0-10.0; Units: K/mm3; Status: F Test: RED BLOOD COUNT; Value: 4.90; Range: 4.00-5.40; Units: M/mm3; Status: F Test: HEMOGLOBIN; Value: 14.1; Range: 12.0-16.0; Units: g/dl; Status: F Test: HEMATOCRIT; Value: 42.5; Range: 36.0-47.0; Units: %; Status: F Test: MEAN CORPUSCULAR VOLUME; Value: 86.6; Range: 80.0-96.0; Units: fl; Status: F Test: MEAN CORPUSCULAR HEMOGLOBIN; Value: 28.7; Range: 27.0-33.0; Units: pg; Status: F Test: MEAN CORPUSCULAR HGB CONC; Value: 33.2; Range: 32.0-36.5; Units: g/dl; Status: F Test: RED CELL DISTRIBUTION WIDTH; Value: 12.6; Range: 11.5-14.5; Units: %; Status: F Test: PLATELET COUNT, AUTOMATED; Value: 458; Range: 150-450; Abnormal: Above high normal; Units: k/mm3; Status: F Lab Order: Drug Eval Toxicology ED Only; SPEC'M 11/09/16 14:12 Test: AMPHETAMINES LEVEL URINE; Value: NEGATIVE; Range: NEGATIVE; Status: F Test: BARBITURATES URINE; Value: NEGATIVE; Range: NEGATIVE; Status: F Test: BENZODIAZEPINES URINE; Value: NEGATIVE; Range: NEGATIVE; Status: F Test: CANNABINOIDS URINE; Value: NEGATIVE; Range: NEGATIVE; Status: F Test: COCAINE METABOLITE URINE; Value: NEGATIVE; Range: NEGATIVE; Status: F Test: METHADONE URINE; Value: NEGATIVE; Range: NEGATIVE; Status: F Test: OPIATES URINE; Value: NEGATIVE; Range: NEGATIVE; Status: F Test: TRICYCLIC ANTIDEPRESS URINE; Value: NEGATIVE; Range: NEGATIVE; Status: F Test Note: ; ALL PRESUMPTIVE POSITIVE FINDINGS ARE UNCONFIRMED NORMAL VALUES THRESHOLD IN NG/ML AMPHETAMINES 1000 METHAMPHETAMINES 1000 BARBITURATES 300 BENZODIAZEPINES 300 CANNABINOIDS (THC) 50 COCAINE METABOLITE 300 METHADONE 300 OPIATES 300 PHENCYCLIDINE 25 TRICYCLIC ANTIDEPRESSANTS 1000 RESULTS ARE FOR MEDICAL PURPOSES ONLY. ALL URINE SPECIMENS WILL BE SAVED FOR 3 DAYS. IF CONFIRMATION OF A PRESUMPTIVE POSTIVE SCREEN RESULT IS DESIRED, CALL CHEMISTRY ([phone]) AND REQUEST URINE TO BE SENT TO REFERENCE LAB. FOR A LIST OF CLOSELY RELATED COMPOUNDS PLEASE CALL THE LAB. Lab Order: Ethyl Alcohol (ethanol); SPEC'M 11/09/16 12:46 Test: ETHYL ALCOHOL (ETHANOL); Value: < 0.003; Range: 0.000-0.010; Units: %; Status: F Lab Order: Liver Profile; SPEC'M 11/09/16 12:46 Test: AST/SGOT; Value: 14; Range: 15-37; Abnormal: Below low normal; Units: U/L; Status: F Test: ALT/SGPT; Value: 31; Range: 12-78; Units: U/L; Status: F Test: ALKALINE PHOSPHATASE; Value: 70; Range: 45-117; Units: U/L; Status: F Test: BILIRUBIN,TOTAL; Value: 0.6; Range: 0.2-1.0; Units: MG/DL; Status: F Test: BILIRUBIN,DIRECT; Value: 0.2; Range: 0.0-0.2; Units: MG/DL; Status: F Test: TOTAL PROTEIN; Value: 8.8; Range: 6.4-8.2; Abnormal: Above high normal; Units: GM/DL; Status: F Test: ALBUMIN; Value: 4.0; Range: 3.2-5.2; Units: GM/DL; Status: F Test: ALBUMIN/GLOBULIN RATIO; Value: 0.83; Range: 1.00-1.93; Abnormal: Below low normal; Status: F Lab Order: Salicylate Level; SPEC'M 11/09/16 12:46 Test: SALICYLATE LEVEL; Value: < 1.7; Range: 5.0-30.0; Abnormal: Below low normal; Units: MG/DL; Status: F Lab Order: Thyroid Stimulating Hormone; SPEC'M 11/09/16 12:46 Test: THYROID STIMULATING HORMONE; Value: 1.480; Range: 0.358-3.740; Units: uIU/ML; Status: F Outcome: 11/09 15:30 No special radiology studies were completed. ttb 19:03 Decision to Hospitalize by Provider. le 20:59 Discharge Assessment: Patient awake, alert and oriented x 3. No cognitive and/or rw1 functional deficits noted. Patient verbalized understanding of disposition instructions. patient administered narcotics - no. The following High Risk Discharge criteria are identified: Admitted to Psych accompanied by tech, via wheelchair, with chart. Condition: stable. 21:26 Patient left the ED. rw1 Signatures: Dispatcher [employer] EDMS Rosa Celestin, Clothing And Textiles Teacher Unit lbd Constance Gamez RN RN [facility], Noam, PSA PSA Del Aida, PSA PSA ms Areli, Leona, Reg Reg gb Aldana, Warner tr Carlos Kruger,[place] [employer] rw1 Haydee Sanders, MYCOLOGIST MYCOLOGIST Perla Byrd RN RN ld5 Chuyita Eduardo RN RN hs1 Radha Walsh RN RN pml Marolf, Dustin dpm Conner, Teresa, RN RN ttCarlos Paris rn1 Julio C Pretty jp5 Corrections: (The following items were deleted from the chart) 18:26 18:12 Subjective: The patients chief complaint is Pt. reports she has been feeling very ms overwhelmed, feeling as though something bad is going to happen. She reports that she is in [employer] program, is about to graduate with honors and does not deserve to be successful . She reports due to inability to sleep lately, she took pills today. She reports though should took pills before going to her exam today at [facility] because she just wanted to sleep. Pt. states she was trying to hurt self because she doesn't deserve to be successful. She stated she wanted to go to sleep and not wake up. Pt. reports having several 'breakdowns in the past( most recent 2010) and has schizoaffective diagnoses.. ms 19:20 19:10 Disposition: Medically cleared for disposition by Haydee Sanders MYCOLOGIST Psychiatric ms Consult is performed by phone with Dr Braden Keen MD : 19:10 [facility] Admission Criteria: The patient is experiencing suicidal ideation. The ms patient requires continuous observation and/or control to protect self, others or property. jl 19:20 19:10 Legal Status: Patient's legal status will be Emergency admission: 9.39. key ms : 19:10 [place] Safe Act: [place] Safe Act is applicable to this patient. The patient poses a ms risk to self or other and the Nursing Dragger Out has been notified. He/She will enter the patient's data. 19:20 19:10 Insurance Pre-Certification: Not Required, key ms Chart Complete MTDD
--- NOTE | 2016-11-11 22:27 | EDDOCDS ---
Physician Documentation [facility] Name: Alexus Olson Age: 31 yrs Sex: Female : 1985 Arrival Date: 11/09/2016 Time: 12:[address] [facility] Private MD: Galen Jackson J Disposition: 11/09/16 19:03 Hospitalization ordered by Braden Keen for Inpatient Admission. Preliminary diagnosis is Schizoaffective disorder, bipolar type. - Bed requested for Admit. - Status is Inpatient Admission. rw1 - Condition is Stable. - Problem is an acute exacerbation. - Symptoms are unchanged. Historical: - Allergies: no known allergies; - Home Meds: 1. Nexium 20 mg Oral cpDR 1 cap once daily 2. Fiber Therapy Laxative (husk) 0.52 gram oral cap 3. hydroxyzine HCl 25 mg Oral tab 1 tab nightly as needed - PMHx: Schizo-Affective Disorder; GERD; - PSHx: oral surgery; - Social history: Smoking status: Patient states was never smoker of tobacco. No barriers to communication noted, The patient speaks fluent Belarusian, Speaks appropriately for age. - Family history: Not pertinent. - : The pt / caregiver states he / she is not on anticoagulants. Home medication list is obtained from the patient. - Exposure Risk Screening:: None identified. CHILD NUTRITION DIRECTOR: 11/09 16:04 LMP 09/2016 ttb Vital Signs: 12:29 Pulse 95 MON; Pulse Ox 95% ; ttb 12:30 BP 136 / 90; Pulse 95 MON; Resp 20; Pulse Ox 100% on R/A; Pain 0/10; ttb 12:42 Temp 99.3(TE); Weight 72.57 kg / 159.99 lbs; Height 5 ft. 3 in. (160.02 cm); rn1 13:00 Pulse 87 MON; Pulse Ox 95% ; ttb 13:30 Pulse 111 MON; Resp 20 S; Pulse Ox 99% on R/A; ttb 15:30 BP 128 / 76 (auto/); ttb 15:30 Pulse 81 MON; Resp 18 S; Pulse Ox 99% on R/A; Pain 0/10; ttb 20:59 BP 136 / 82; Pulse 75; Resp 16; Temp 97.9(O); Pulse Ox 98% on R/A; Pain 0/10; rw1 12:42 Body Mass Index 28.34 (72.57 kg, 160.02 cm) rn1 MDM: 12:42 Consult PFS/PSA/Film Laboratory Technician ordered. le 12:42 Consult PFS/PSA/Film Laboratory Technician: Patient's case requires discussion with on-call le Psychiatrist ordered. 12:42 PSA/PFS to call Nursing Vermin Exterminator, to enter patient data on [place] if patient le involuntarily admitted or transferred for SI or HI ordered. 12:42 Confirm accurate psychiatric medication list and times of last dosage ordered. le 12:42 Detain Pt Until Medically/PFS Cleared ordered. le 12:42 IV Saline Lock ordered. le 12:43 Acetaminophen Level Ordered. EDMS 12:43 Basic Metabolic Profile Ordered. EDMS 12:43 Complete Blood Count Ordered. EDMS 12:43 Drug Eval Toxicology ED Only Ordered. EDMS 12:43 Ethyl Alcohol (ethanol) Ordered. EDMS 12:43 Liver Profile Ordered. EDMS 12:43 Salicylate Level Ordered. EDMS 12:43 Thyroid Stimulating Hormone Ordered. EDMS 12:43 ECG WITH READING ER PHYS+CARDIAG ordered. EDMS 14:16 Acetaminophen Level Reviewed. le 14:16 Complete Blood Count Reviewed. le 14:16 Liver Profile Reviewed. le 14:16 Salicylate Level Reviewed. le 14:16 Basic Metabolic Profile Reviewed. le 14:16 Ethyl Alcohol (ethanol) Reviewed. le 14:16 Thyroid Stimulating Hormone Reviewed. le 15:50 Drug Eval Toxicology ED Only Reviewed. le 15:52 The patient has been medically cleared for psychiatric evaluation, admission and/or le transfer. 16:01 [place] [place] Payment Agreement was scanned into [employer] and attached to record. jp5 16:01 Financial registration complete. jp5 17:14 REGULAR DIET PLASTIC STOEN+DIET ordered. EDMS 18:09 Consult PFS/PSA/Film Laboratory Technician complete. ms 18:09 Consult PFS/PSA/Film Laboratory Technician: Patient's case requires discussion with on-call ms Psychiatrist complete. 18:09 PSA/PFS to call Nursing Vermin Exterminator, to enter [place] data [place] if patient ms involuntarily admitted or transferred for SI or HI complete. 19:32 Admit to [facility]: ordered. EDMS 19:54 [facility] Legal paperwork was scanned into [employer] and attached to record. ms 11/10 12:56 T-Sheet-- Draft Copy was scanned into MEDHOST and attached to record. gb 12:56 ECG/EKG was scanned into MED[employer] and attached to record. gb 12:56 Trend VS was scanned into MEDHOST and attached to record. gb Signatures: Dispatcher [employer] EDConstance Power, RN RN srm Del, Aida, PSA PSA ms Areli, Leona, Reg Reg gb Workman,Carlos,PRODUCT GRADER PRODUCT GRADER rw1 Haydee Sanders, PROMOTIONS EXECUTIVE PROMOTIONS EXECUTIVE Chuyita Marquez RN RN hs1 Megan Brunner RN RN ttb Julio C Pretty jp5 The chart was reviewed and I authenticate all verbal orders and agree with the evaluation and treatment provided.Corrections: (The following items were deleted from the chart) 11/09 16:49 14:17 Straight cath ordered. diego salcido Attachments: 16:01 [facility] Payment Agreement jp5 11/10 12:56 T-Sheet-- Draft Copy gb 12:56 ECG/EKG gb Chart Complete MTDD
--- NOTE | 2016-11-11 22:27 | EDDOCDS ---
Physician Documentation [facility] Name: Alexus Olson Age: 31 yrs Sex: Female : 1985 Arrival Date: 11/09/2016 Time: 12:08 Bed [facility] Private MD: Galen Jackson J Disposition: 11/09/16 19:03 Hospitalization ordered by Braden Keen for Inpatient Admission. Preliminary diagnosis is Schizoaffective disorder, bipolar type. - Bed requested for Admit. - Status is Inpatient Admission. rw1 - Condition is Stable. - Problem is an acute exacerbation. - Symptoms are unchanged. Historical: - Allergies: no known allergies; - Home Meds: 1. Nexium 20 mg Oral cpDR 1 cap once daily 2. Fiber Therapy Laxative (husk) 0.52 gram oral cap 3. hydroxyzine HCl 25 mg Oral tab 1 tab nightly as needed - PMHx: Schizo-Affective Disorder; GERD; - PSHx: oral surgery; - Social history: Smoking status: Patient states was never smoker of tobacco. No barriers to communication noted, The patient speaks fluent Kazakh, Speaks appropriately for age. - Family history: Not pertinent. - : The pt / caregiver states he / she is not on anticoagulants. Home medication list is obtained from the patient. - Exposure Risk Screening:: None identified. TOOL CRIB ATTENDANT: 11/09 16:04 LMP 09/2016 ttb Vital Signs: 12:29 Pulse 95 MON; Pulse Ox 95% ; ttb 12:30 BP 136 / 90; Pulse 95 MON; Resp 20; Pulse Ox 100% on R/A; Pain 0/10; ttb 12:42 Temp 99.3(TE); Weight 72.57 kg / 159.99 lbs; Height 5 ft. 3 in. (160.02 cm); rn1 13:00 Pulse 87 MON; Pulse Ox 95% ; ttb 13:30 Pulse 111 MON; Resp 20 S; Pulse Ox 99% on R/A; ttb 15:30 BP 128 / 76 (auto/); ttb 15:30 Pulse 81 MON; Resp 18 S; Pulse Ox 99% on R/A; Pain 0/10; ttb 20:59 BP 136 / 82; Pulse 75; Resp 16; Temp 97.9(O); Pulse Ox 98% on R/A; Pain 0/10; rw1 12:42 Body Mass Index 28.34 (72.57 kg, 160.02 cm) rn1 MDM: 12:42 Consult PFS/PSA/Personal Lines Agent ordered. le 12:42 Consult PFS/PSA/Personal Lines Agent: Patient's case requires discussion with on-call le Psychiatrist ordered. 12:42 PSA/PFS to call Nursing Audiology Assistant, to enter [place] data [place] if patient le involuntarily admitted or transferred for SI or HI ordered. 12:42 Confirm accurate psychiatric medication list and times of last dosage ordered. le 12:42 Detain Pt Until Medically/PFS Cleared ordered. le 12:42 IV Saline Lock ordered. le 12:43 Acetaminophen Level Ordered. EDMS 12:43 Basic Metabolic Profile Ordered. EDMS 12:43 Complete Blood Count Ordered. EDMS 12:43 Drug Eval Toxicology ED Only Ordered. EDMS 12:43 Ethyl Alcohol (ethanol) Ordered. EDMS 12:43 Liver Profile Ordered. EDMS 12:43 Salicylate Level Ordered. EDMS 12:43 Thyroid Stimulating Hormone Ordered. EDMS 12:43 ECG WITH READING ER PHYS+CARDIAG ordered. EDMS 14:16 Acetaminophen Level Reviewed. le 14:16 Complete Blood Count Reviewed. le 14:16 Liver Profile Reviewed. le 14:16 Salicylate Level Reviewed. le 14:16 Basic Metabolic Profile Reviewed. le 14:16 Ethyl Alcohol (ethanol) Reviewed. le 14:16 Thyroid Stimulating Hormone Reviewed. le 15:50 Drug Eval Toxicology ED Only Reviewed. le 15:52 The patient has been medically cleared for psychiatric evaluation, admission and/or le transfer. 16:01 [place] [place] Payment Agreement was scanned into [employer] and attached to record. jp5 16:01 Financial registration complete. jp5 17:14 REGULAR DIET PLASTIC STONE+DIET ordered. EDMS 18:09 Consult PFS/PSA/Personal Lines Agent complete. ms 18:09 Consult PFS/PSA/Personal Lines Agent: Patient's case requires discussion with on-call ms Psychiatrist complete. 18:09 PSA/PFS to call Nursing Audiology Assistant, to enter [place] if patient ms involuntarily admitted or transferred for SI or HI complete. 19:32 Admit to [facility]: ordered. EDMS 19:54 [facility] Legal paperwork was scanned into [employer] and attached to record. ms 11/10 12:56 T-Sheet-- Draft Copy was scanned into MEDHOST and attached to record. gb 12:56 ECG/EKG was scanned into MEDHOST and attached to record. gb 12:56 Trend VS was scanned into MEDHOST and attached to record. gb Signatures: Dispatcher Med[employer] EDConstance Power, RN RN srm Del, Aida, PSA PSA ms Areli, Leona, Reg Reg gb Workman,Carlos,NUCLEAR CONTROL OPERATOR NUCLEAR CONTROL OPERATOR rw1 Haydee Sanders, TEXTILE CLOTHING AND FOOTWEAR MECHANIC TEXTILE CLOTHING AND FOOTWEAR MECHANIC Chuyita Marquez RN RN hs1 Megan Brunner RN RN ttb Julio C Pretty jp5 The chart was reviewed and I authenticate all verbal orders and agree with the evaluation and treatment provided.Corrections: (The following items were deleted from the chart) 11/09 16:49 14:17 Straight cath ordered. diego salcido Attachments: 16:01 [facility] Payment Agreement jp5 11/10 12:56 T-Sheet-- Draft Copy gb 12:56 ECG/EKG gb Chart Complete MTDD
[2016-11-12 06:37] VITALS: BP 127/58
[2016-11-12] MEDS: PANTOPRAZOLE 20 MG TAB PO SCH (08:55)
[2016-11-12] MEDS: CitaloPRAM (CeleXA) 20 MG TAB PO SCH (08:55)
[2016-11-12] MEDS: risperiDONE 2 MG TAB PO SCH (08:55)
--- NOTE | 2016-11-12 13:55 | IPN ---
DATE: 11/11/2016 31-year-old female with history of schizoaffective disorder admitted for a depressive episode. SUBJECTIVE: "I don't feel well". OBJECTIVE: Patient continues displaying thought blocking with very poor eye contact, displaying psychomotor retardation, very poor speech. Patient refused to take her medications this morning. Patient is not interacting with other patients and staff and isolates herself in the room. MENTAL STATUS EXAMINATION: Patient dressed in [facility]. Poor eye contact. Speech is soft and monotone. is low and poor. Mood is very depressed and anxious. Affect is very restricted. At times, appears to react to internal stimuli. Attention, concentration and memory are impaired. Patient denies suicidal or homicidal ideation, however, she is unreliable. Insight and judgment is poor. ASSESSMENT: 1. Schizoaffective disorder, depressive episode. PLAN: 1. Continue with Celexa 20 mg by mouth daily every morning. 2. Continue with Risperdal 20 mg by mouth twice daily. 3. Continue with trazodone 50 mg daily at bedtime as needed for insomnia. 4. Continue close observation.
[2016-11-12 18:00] VITALS: BP 143/85
--- NOTE | 2016-11-12 20:06 | IPNPDOC ---
[facility] Progress Note Progress Note DATE OF SERVICE: 11/12/16 CHIEF COMPLAINT: "I was having suicidal thoughts and anxiety". HISTORY OF PRESENT ILLNESS: 31-year-old female with a history of schizoaffective disorder, admitted to our unit on a 9.39 legal status. According to the chart, the patient was sent from [facility] licensed practical nurse program after "she was not acting right." She told a friend that she has taken hydroxyzine and lorazepam. During the evaluation in the emergency room, it is stated that the patient is feeling "very overwhelmed" as though something bad was going to happen. She is in the [employer] program and is about to graduate with honors. The patient reports an inability to sleep lately. She took pills today before going to her examination at [facility]. The patient stated that she wanted to go to sleep and not wake up. Also, that she does not deserve to be successful. The patient was treated for schizoaffective disorder in 2010, but since then has not been in treatment or taking medications and apparently doing well. The patient reported paranoid delusions for a couple of days. The patient has been needing to get assistance for getting dressed and has not been caring for herself as usual. Her spouse Tristin said that she has been having difficulty sleeping, having increasing anxiety and paranoia since 10/27/2016. She has been paranoid about him leaving her or her parents who live with them that she believes that they are against her. noted to say that the patient has been anxious and depressed. During the interview today, the patient is sitting up in the bed. She is selectively mute and unable to answer questions. I could not gather any information from the patient today. PSYCHIATRIC HISTORY: As above. According to the chart, the patient has schizoaffective disorder. PAST MEDICAL HISTORY: According to the chart, the patient suffers from gastroesophageal reflux disease (GERD) and is on Nexium 20 mg daily. No information could be gathered from the patient. VITAL SIGNS: Please see below. 96.7 112 16 127/58. CURRENT MEDICATIONS: See below. Pt. has not been on meds since 2010 and apparently has been doing well. NEW TEST RESULTS: On admission - Complete blood count (CBC) is unremarkable except platelet count of 458. CMP is unremarkable. TSH within normal limits. Urine drug screen is negative. Blood alcohol level is negative. MENTAL STATUS EXAMINATION: Patient is a 31 year old female, who appears sleepy, is cooperative, unkempt of normal weight with steady gait. Speech: Is of a slowed rate, soft volume, articulate, coherent, and spontaneous. Pt. has eyes closed thru majority of assessment. When provider asks why, pt. states "I'm tired". Thought processes: Clear, Do not appear to be goal-directed. Rate of thoughts: Slowed. Thought content: Rational, Logical, Possibly paranoid. Abstract reasoning and computation: Unable to assess. Description of associations: Intact. Description of abnormal or psychotic thoughts: Pt. denies visual hallucinations , delusions. Pt. appears to have some paranoia, reports having auditory hallucination of dad and sister who tell her "You're not good enough". Pt. is able to say that they would not say that to her presently. Pt. feels she is preoccupied with finishing [employer] school. Pt. also feels obsessed with getting all homework completed. Pt. does not feel any compulsions at present. Pt. denies thoughts of self-harm. Pt. may be responding to internal stimuli as evidenced by her keeping her eyes closed. Judgment: Fair. Insight: Fair. Oriented to: Time, person, place and surroundings. Recent and Remote Memory: Pt. feels she has short-term memory issues when she is stressed and/or has not slept. Attention Span and Concentration: [Poor, Good, Fair]. Language: Normal, somewhat slowed processing. Fund of knowledge: Adequate. Mood: "I'm ok". Pt. feels as though she is improving since admission. Pt. tells provider that she had been worried about her step-daughter being taken away. Affect: Appropriate, flat. DIAGNOSES: 1. Schizoaffective disorder, by history. ASSESSMENT: Patient was found to be sleeping in her room when she should've planning group. Patient had not been visible on the unit until provider went to her room patient was encouraged to attend groups and unit activities. When patient was awake she was pleasant and cooperative and easily engaged. Patient denies all suicidal and homicidal ideation, denies any self-harm thoughts. Patient does state she feels very sleepy. Patient also tells provider that she hasn't rested well since the beginning of October. Patient does report feeling stressed as she is finishing [employer] school. Patient states she has not had to be on any meds since 2010 even though she had a prior diagnosis of schizoaffective disorder. MANAGEMENT PLAN: The patient was admitted on a 9.39 legal status. Her medication regimen will be evaluated and adjusted accordingly. Patient is agreeable to be on citalopram 20 mg by mouth every morning, Risperdal 2 mg by mouth twice a day we'll decrease to 1 mg at bedtime, hydroxyzine 25 mg by mouth every 6 hours when necessary for agitation or anxiety, trazodone 50 mg by mouth daily at bedtime when necessary for sleep. Maintain safety precautions. Patient to attend groups and participate in unit programming to develop coping strategies. Patient to be engaged in discharge planning process to ensure safe and effective discharge plan. Patient to follow-up with PCP upon discharge. Patient to schedule and attend outpatient therapy and medication management appointments. TIME SPENT: 25 minutes Vital Signs/I&O Vital Signs Date Time Temp Pulse Resp B/P Pulse Ox O2 Delivery O2 Flow Rate FiO2 11/12/16 06:37 96.7 112 16 127/58 Current Medications Current Medications Acetaminophen (Tylenol) 650 mg Q6HP PRN PO HEADACHE or DISCOMFORT; Start at 22:15; Stop 12/09/16 at 22:14 Al Hydrox/Mg Hydrox/Simethicone (Mylanta) 30 ml Q4HP PRN PO HEARTBURN/ INDIGESTION; Start 11/09/16 at 22:15; Stop 12/09/16 at 22:14 Citalopram Hydrobromide (CeleXA) 10 mg DAILY PO Last administered on 11/10/16 12:55; Start 11/10/16 at 09:00; Stop 11/10/16 at 15:00; Status DC Citalopram Hydrobromide (CeleXA) 20 mg DAILY PO Last administered on 11/12/16 08:55; Start 11/11/16 at 09:00; Stop 12/11/16 at 08:59 Home Med (Med Rec Complete!) ASDIRECTED XX ; Start 11/09/16 at 20:15; Stop at 20:17; Status DC Hydroxyzine HCl (Vistaril) 25 mg Q6HP PRN PO ANXIETY Last administered on 08:56; Start 11/09/16 at 22:30; Stop 12/09/16 at 22:29 Magnesium Hydroxide (Milk Of Magnesia) 30 ml DAILYPRN PRN PO CONSTIPATION; Start 11/09/16 at 22:15; Stop 12/09/16 at 22:14 Pantoprazole Sodium (Protonix) 20 mg DAILY PO Last administered on 11/12/16 08 :55; Start 11/10/16 at 09:00; Stop 12/10/16 at 08:59 Polyethylene Glycol (Miralax) 1 pkt DAILYPRN PRN PO CONSTIPATION; Start at 22:15; Stop 12/09/16 at 22:14 Risperidone (RisperDAL) 2 mg BID PO Last administered on 11/12/16 08:55; Start 11/10/16 at 09:00; Stop 12/10/16 at 08:59 Trazodone HCl (Desyrel) 50 mg QHSP PRN PO INSOMNIA Last administered on 21:08; Start 11/09/16 at 22:15; Stop 12/09/16 at 22:14 Allergies Coded Allergies: No Known Allergies (Unverified , 07/31/16) DAT ALEXIS NP Nov 12, 2016 20:06 Allergies Coded Allergies: No Known Allergies (Unverified , 07/31/16) DAT ALEXIS NP Nov 12, 2016 20:06
[2016-11-12] MEDS: traZODone 50 MG TAB PO PRN (22:03)
[2016-11-12] MEDS: risperiDONE 1 MG TAB PO SCH (22:03)
[2016-11-13 06:28] VITALS: BP 146/92
[2016-11-13] MEDS: CitaloPRAM (CeleXA) 20 MG TAB PO SCH (08:35)
[2016-11-13] MEDS: PANTOPRAZOLE 20 MG TAB PO SCH (08:35)
[2016-11-13 18:00] VITALS: BP 136/84
[2016-11-13] MEDS: risperiDONE 1 MG TAB PO SCH (20:02)
[2016-11-13] MEDS: traZODone 50 MG TAB PO PRN (20:02)
[2016-11-13] MEDS: hydrOXYzine 25 MG TAB PO PRN (20:02)
--- NOTE | 2016-11-13 20:41 | IPNPDOC ---
[facility] Progress Note Progress Note DATE: 11/13/16 HISTORY : 31-year-old female with a history of schizoaffective disorder, admitted to our unit on a 9.39 legal status. 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 During the evaluation in the emergency room, it is stated that the patient is feeling "very overwhelmed" as though something bad was going to happen. She is in the [employer] program and is about to graduate with honors. The patient reports an inability to sleep lately. She took pills today before going to her examination at [facility]. The patient stated that she wanted to go to sleep and not wake up. Also, that she does not deserve to be successful. The patient was treated for schizoaffective disorder in 2010, but since then has not been in treatment or taking medications and apparently doing well. The patient reported paranoid delusions for a couple of days. The patient has been needing to get assistance for getting dressed and has not been caring for herself as usual. Her spouse Tristin said that she has been having difficulty sleeping, having increasing anxiety and paranoia since 10/27/2016. She has been paranoid about him leaving her or her parents who live with them that she believes that they are against her. noted to say that the patient has been anxious and depressed. During the interview today, the patient is sitting up in the bed. She is selectively mute and unable to answer questions. MD could not gather any information from the patient on admit. PSYCHIATRIC HISTORY: As above. According to the chart, the patient has schizoaffective disorder. PAST MEDICAL HISTORY: According to the chart, the patient suffers from gastroesophageal reflux disease (GERD) and is on Nexium 20 mg daily. VITAL SIGNS: Please see below. 98.6 82 18 146/92 CURRENT MEDICATIONS: See below. Risperdal 1 mg po q hs, Citalopram 20 mg po q am , Hydroxyzine hcl 25 mg po q6h prn A/A, Trazodone 50 mg po qhs prn for insomnia. NEW TEST RESULTS: On admission - Complete blood count (CBC) is unremarkable except platelet count of 458. CMP is unremarkable. TSH within normal limits. Urine drug screen is negative. Blood alcohol level is negative. MENTAL STATUS EXAMINATION: Patient is a 31 year old female, who is pleasant and cooperative, average grooming, of normal weight with steady gait. Pt. states she "slept pretty well" last night, about 6 hours. Speech: Is of a normal rate, soft volume, articulate, coherent, and spontaneous. Pt. has eyes open but is looking down thru majority of assessment. Limited eye contact with provider, better than yesterday. Thought processes: Clearing, becoming goal-directed. Rate of thoughts: Normal. Thought content: Rational, Logical, no evidence of paranoia. Abstract reasoning and computation: Adequate. Description of associations: Intact. Description of abnormal or psychotic thoughts: Pt. denies visual hallucinations , delusions. Pt. appears to have less paranoia, reports having auditory hallucination of dad and sister which patient states is quieter than yesterday. Pt. feels she is preoccupied with finishing [employer] school, going to work. Patient denies obsessions or compulsions at present. Pt. denies thoughts of self -harm. Pt. does not appear to be be responding to internal stimuli. Judgment: Improving. Insight: Improving. Oriented to: Time, person, place and surroundings. Recent and Remote Memory: Pt. feels she has short-term memory issues when she is stressed and/or has not slept. Patient feels this is "getting better ". Attention Span and Concentration: Improving. Language: Normal. Fund of knowledge: Adequate. Mood: "I'm feeling a lot better". Pt. feels as though she is improving since admission. Pt. tells provider that she had been worried about her step-daughter being taken away, still is, but not inappropriately. Affect: Appropriate, flat. DIAGNOSES: 1. Schizoaffective disorder, by history. ASSESSMENT: Patient was found to be walking in halls is encouraged. Patient is easily engaged, pleasant and cooperative. Patient was noted to be wearing her own clothing. Patient denies all suicidal and homicidal ideation, denies any self-harm thoughts. Patient patient does report some feelings of paranoia as far as people talking about her. Patient feels this is clearing as well. Patient does report now that she feels she would have a better quality of life if she was on medicines as needed per evaluation. Patient is much more bright and lucid today. MANAGEMENT PLAN: The patient was admitted on a 9.39 legal status. Her medication regimen will be evaluated and adjusted accordingly. Patient is agreeable to decrease citalopram to 10 from 20 mg by mouth every morning, decrease Risperdal from 2 to 1 mg by mouth at bedtime, hydroxyzine 25 mg by mouth every 6 hours when necessary for agitation or anxiety, trazodone 50 mg by mouth daily at bedtime when necessary for sleep. Maintain safety precautions. Patient to attend groups and participate in unit programming to develop coping strategies. Patient to be engaged in discharge planning process to ensure safe and effective discharge plan. Patient to follow-up with PCP upon discharge. Patient to schedule and attend outpatient therapy and medication management appointments. Patient states that in the past she had been on the Invega Sustenna injection for approximately 4 months. Patient stopped the medication as she did not feel she needed it. The last time she remembers taking it is in 2010. TIME SPENT: 25 minutes Vital Signs Vital Signs Date Time Temp Pulse Resp B/P Pulse Ox O2 Delivery O2 Flow Rate FiO2 11/13/16 18:00 97.9 90 16 136/84 Current Medications Current Medications Acetaminophen (Tylenol) 650 mg Q6HP PRN PO HEADACHE or DISCOMFORT; Start at 22:15; Stop 12/09/16 at 22:14 Al Hydrox/Mg Hydrox/Simethicone (Mylanta) 30 ml Q4HP PRN PO HEARTBURN/ INDIGESTION; Start 11/09/16 at 22:15; Stop 12/09/16 at 22:14 Citalopram Hydrobromide (CeleXA) 10 mg DAILY PO Last administered on 11/10/16t 12:55; Start 11/10/16 at 09:00; Stop 11/10/16 at 15:00; Status DC Citalopram Hydrobromide (CeleXA) 10 mg QAM PO ; Start 11/14/16 at 09:00; Stop at 08:59; Status UNV Citalopram Hydrobromide (CeleXA) 20 mg DAILY PO Last administered on 11/13/16t 08:35; Start 11/11/16 at 09:00; Stop 11/13/16 at 20:18; Status DC Fluoxetine HCl (PROzac) 10 mg QAM PO ; Start 11/14/16 at 09:00; Stop 12/14/16 at 08:59; Status UNV Home Med (Med Rec Complete!) ASDIRECTED XX ; Start 11/09/16 at 20:15; Stop at 20:17; Status DC Hydroxyzine HCl (Vistaril) 25 mg Q6HP PRN PO ANXIETY Last administered on 20:02; Start 11/09/16 at 22:30; Stop 12/09/16 at 22:29 Magnesium Hydroxide (Milk Of Magnesia) 30 ml DAILYPRN PRN PO CONSTIPATION; Start 11/09/16 at 22:15; Stop 12/09/16 at 22:14 Paliperidone (Invega) 3 mg QAM PO ; Start 11/14/16 at 09:00; Stop 12/14/16 at 08 :59; Status UNV Pantoprazole Sodium (Protonix) 20 mg DAILY PO Last administered on 11/13/16 08 :35; Start 11/10/16 at 09:00; Stop 12/10/16 at 08:59 Polyethylene Glycol (Miralax) 1 pkt DAILYPRN PRN PO CONSTIPATION; Start at 22:15; Stop 12/09/16 at 22:14 Risperidone (RisperDAL) 1 mg QHS PO Last administered on 11/13/16 20:02; Start 11/12/16 at 21:00; Stop 11/13/16 at 20:18; Status DC Risperidone (RisperDAL) 1 mg QHS PO ; Start 11/13/16 at 21:00; Stop 11/13/16 at 22:00; Status UNV Risperidone (RisperDAL) 2 mg BID PO Last administered on 11/12/16 08:55; Start 11/10/16 at 09:00; Stop 11/12/16 at 20:01; Status DC Trazodone HCl (Desyrel) 50 mg QHSP PRN PO INSOMNIA Last administered on 20:02; Start 11/09/16 at 22:15; Stop 12/09/16 at 22:14 Allergies Coded Allergies: No Known Allergies (Unverified , 07/31/16) DAT ALEXIS NP Nov 13, 2016 20:41
[2016-11-13] MEDS ORDERED: risperiDONE 1 MG TAB PO SCH (21:00)
[2016-11-14 06:32] VITALS: BP 122/55
[2016-11-14] MEDS: FLUoxetine 10 MG CAP PO SCH (08:47)
[2016-11-14] MEDS: PANTOPRAZOLE 20 MG TAB PO SCH (08:47)
[2016-11-14] MEDS ORDERED: PALIPERIDONE 3 MG ER TAB (INVEGA) PO SCH (09:00)
[2016-11-14] MEDS ORDERED: CitaloPRAM (CeleXA) 10 MG TABLET PO SCH (09:00)
--- NOTE | 2016-11-14 18:15 | IPNPDOC ---
[facility] Progress Note Progress Note DATE OF SERVICE: 11/14/16 HISTORY : 31-year-old female with a history of schizoaffective disorder, admitted to our unit on a 9.39 legal status. 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 During the evaluation in the emergency room, it is stated that the patient is feeling "very overwhelmed" as though something bad was going to happen. She is in the [employer] program and is about to graduate with honors. The patient reports an inability to sleep lately. She took pills today before going to her examination at [facility]. The patient stated that she wanted to go to sleep and not wake up. Also, that she does not deserve to be successful. The patient was treated for schizoaffective disorder in 2010, but since then has not been in treatment or taking medications and apparently doing well. The patient reported paranoid delusions for a couple of days. The patient has been needing to get assistance for getting dressed and has not been caring for herself as usual. Her spouse Tristin said that she has been having difficulty sleeping, having increasing anxiety and paranoia since 10/27/2016. She has been paranoid about him leaving her or her parents who live with them that she believes that they are against her. noted to say that the patient has been anxious and depressed. During the interview today, the patient is sitting up in the bed. She is selectively mute and unable to answer questions. MD could not gather any information from the patient on admit. PSYCHIATRIC HISTORY: As above. According to the chart, the patient has schizoaffective disorder. PAST MEDICAL HISTORY: According to the chart, the patient suffers from gastroesophageal reflux disease (GERD) and is on Nexium 20 mg daily. VITAL SIGNS: Please see below. 97.3 106 16 122/55 CURRENT MEDICATIONS: See below. Citalopram 10 mg po q am, Invega 3 mg po q am, Hydroxyzine hcl 25 mg po q6h prn A/A, Trazodone 50 mg po qhs prn for insomnia. NEW TEST RESULTS: On admission - Complete blood count (CBC) is unremarkable except platelet count of 458. CMP is unremarkable. TSH within normal limits. Urine drug screen is negative. Blood alcohol level is negative. MENTAL STATUS EXAMINATION: Patient is a 31 year old female, who is pleasant and cooperative, average grooming, of normal weight with steady gait. Pt. states she "slept OK" last night, about 6 hours. Speech: Is of a normal rate, soft volume, articulate, coherent, and spontaneous. Pt. has eyes open but is looking down thru majority of assessment. Pt. has improved eye contact with provider, not looking down as much. Thought processes: Continues to clear, becoming goal-directed. Rate of thoughts: Normal. Thought content: Rational, Logical, no evidence of paranoia. Abstract reasoning and computation: Adequate. Description of associations: Intact. Description of abnormal or psychotic thoughts: Pt. denies visual hallucinations , delusions. Pt. appears to have less paranoia, reports having auditory hallucination which is quieter today. Although pt. states she heard(or thought she did) over the intercom that her was taken. Pt. is embarrassed to talk about in detail. Pt. feels she is preoccupied with finishing [employer] school, going to work. Patient denies obsessions or compulsions at present. Pt. denies thoughts of self-harm. Pt. does not appear to be be responding to internal stimuli. Judgment: Improving. Insight: Improving. Oriented to: Time, person, place and surroundings. Recent and Remote Memory: Pt. feels she has short-term memory issues when she is stressed and/or has not slept. Patient feels this is "clearing daily". Attention Span and Concentration: Improving. Language: Normal. Fund of knowledge: Adequate. Mood: "I'm OK". Pt. feels as though she is improving since admission. Affect: Appropriate, flat. DIAGNOSES: 1. Schizoaffective disorder, by history. ASSESSMENT: Patient was found to be walking in halls and is encouraged to continue. Patient is easily engaged, pleasant and cooperative. Patient was noted to be wearing her own clothing. Patient denies all suicidal and homicidal ideation, denies any self-harm thoughts. Patient does report some feelings of paranoia as far as people talking about her. Patient feels this is clearing as well. Patient does report now that she feels she would have a better quality of life if she was on medicines as needed per evaluation. Patient continues to brighten daily. MANAGEMENT PLAN: Pt's. medication regimen will be evaluated and adjusted accordingly. Patient is agreeable to discontinue citalopram 10mg by mouth every morning, start fluoxetine 10 mg po q am, discontinue invega 3 mg po q am, start Invega sustenna 234 mg im x1, continue hydroxyzine 25 mg by mouth every 6 hours when necessary for agitation or anxiety, trazodone 50 mg by mouth daily at bedtime when necessary for sleep. Maintain safety precautions. Patient to attend groups and participate in unit programming to develop coping strategies. Patient to be engaged in discharge planning process to ensure safe and effective discharge plan. Patient to follow-up with PCP upon discharge. Patient to schedule and attend outpatient therapy and medication management appointments. Patient states that in the past she had been on the Invega Sustenna injection for approximately 4 months. Patient stopped the medication as she did not feel she needed it. The last time she remembers taking it is in 2010. TIME SPENT: 25 minutes Vital Signs Vital Signs Date Time Temp Pulse Resp B/P Pulse Ox O2 Delivery O2 Flow Rate FiO2 11/14/16 06:32 97.3 106 16 122/55 Current Medications Current Medications Acetaminophen (Tylenol) 650 mg Q6HP PRN PO HEADACHE or DISCOMFORT; Start at 22:15; Stop 12/09/16 at 22:14 Al Hydrox/Mg Hydrox/Simethicone (Mylanta) 30 ml Q4HP PRN PO HEARTBURN/ INDIGESTION; Start 11/09/16 at 22:15; Stop 12/09/16 at 22:14 Citalopram Hydrobromide (CeleXA) 10 mg DAILY PO Last administered on 11/10/16 12:55; Start 11/10/16 at 09:00; Stop 11/10/16 at 15:00; Status DC Citalopram Hydrobromide (CeleXA) 10 mg QAM PO Last administered on 11/14/16 08 :47; Start 11/14/16 at 09:00; Stop 12/14/16 at 08:59 Citalopram Hydrobromide (CeleXA) 20 mg DAILY PO Last administered on 11/13/16 08:35; Start 11/11/16 at 09:00; Stop 11/13/16 at 20:18; Status DC Fluoxetine HCl (PROzac) 10 mg QAM PO Last administered on 11/14/16 08:47; Start 11/14/16 at 09:00; Stop 12/14/16 at 08:59 Home Med (Med Rec Complete!) ASDIRECTED XX ; Start 11/09/16 at 20:15; Stop at 20:17; Status DC Hydroxyzine HCl (Vistaril) 25 mg Q6HP PRN PO ANXIETY Last administered on 20:02; Start 11/09/16 at 22:30; Stop 12/09/16 at 22:29 Magnesium Hydroxide (Milk Of Magnesia) 30 ml DAILYPRN PRN PO CONSTIPATION; Start 11/09/16 at 22:15; Stop 12/09/16 at 22:14 Paliperidone (Invega) 3 mg QAM PO Last administered on 11/14/16 08:47; Start 11/14/16 at 09:00; Stop 12/14/16 at 08:59 Pantoprazole Sodium (Protonix) 20 mg DAILY PO Last administered on 11/14/16 08 :47; Start 11/10/16 at 09:00; Stop 12/10/16 at 08:59 Polyethylene Glycol (Miralax) 1 pkt DAILYPRN PRN PO CONSTIPATION; Start at 22:15; Stop 12/09/16 at 22:14 Risperidone (RisperDAL) 1 mg QHS PO Last administered on 11/13/16 20:02; Start 11/12/16 at 21:00; Stop 11/13/16 at 20:18; Status DC Risperidone (RisperDAL) 1 mg QHS PO ; Start 11/13/16 at 21:00; Stop 11/13/16 at 21:00; Status DC Risperidone (RisperDAL) 2 mg BID PO Last administered on 11/12/16 08:55; Start 11/10/16 at 09:00; Stop 11/12/16 at 20:01; Status DC Trazodone HCl (Desyrel) 50 mg QHSP PRN PO INSOMNIA Last administered on 20:02; Start 11/09/16 at 22:15; Stop 12/09/16 at 22:14 Allergies Coded Allergies: No Known Allergies (Unverified , 07/31/16) DAT ALEXIS NP Nov 14, 2016 18:15
[2016-11-14 18:19] VITALS: BP 130/70
[2016-11-14] MEDS ORDERED: PALIPERIDONE PALMITATE 234 MG/1.5 ML INJ (INVEGA SUSTENNA)(J2426) IM ONE (20:00)
[2016-11-15 06:45] VITALS: BP 116/63
[2016-11-15] MEDS: PANTOPRAZOLE 20 MG TAB PO SCH (09:11)
[2016-11-15] MEDS: FLUoxetine 10 MG CAP PO SCH (09:11)
[2016-11-15] MEDS ORDERED: PALIPERIDONE PALMITATE 234 MG/1.5 ML INJ (INVEGA SUSTENNA)(J2426) IM ONE (11:00)
[2016-11-15 18:00] VITALS: BP 137/85
--- NOTE | 2016-11-15 18:31 | IPNPDOC ---
[facility] Progress Note Progress Note DATE: 11/15/16 HISTORY : 31-year-old female with a history of schizoaffective disorder, admitted to our unit on a 9.39 legal status. 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 During the evaluation in the emergency room, it is stated that the patient is feeling "very overwhelmed" as though something bad was going to happen. She is in the [employer] program and is about to graduate with honors. The patient reports an inability to sleep lately. She took pills today before going to her examination at [facility]. The patient stated that she wanted to go to sleep and not wake up. Also, that she does not deserve to be successful. The patient was treated for schizoaffective disorder in 2010, but since then has not been in treatment or taking medications and apparently doing well. The patient reported paranoid delusions for a couple of days. The patient has been needing to get assistance for getting dressed and has not been caring for herself as usual. Her spouse Tristin said that she has been having difficulty sleeping, having increasing anxiety and paranoia since 10/27/2016. She has been paranoid about him leaving her or her parents who live with them that she believes that they are against her. noted to say that the patient has been anxious and depressed. During the interview today, the patient is sitting up in the bed. She is selectively mute and unable to answer questions. MD could not gather any information from the patient on admit. PSYCHIATRIC HISTORY: As above. According to the chart, the patient has schizoaffective disorder. PAST MEDICAL HISTORY: According to the chart, the patient suffers from gastroesophageal reflux disease (GERD) and is on Nexium 20 mg daily. VITAL SIGNS: Please see below. 97.6 95 16 116/63 CURRENT MEDICATIONS: See below. Fluoxetine 10 mg po q am, Invega 234 mg IM x1, was to receive last night, Hydroxyzine hcl 25 mg po q6h prn A/A, Trazodone 50 mg po qhs prn for insomnia. NEW TEST RESULTS: On admission - Complete blood count (CBC) is unremarkable except platelet count of 458. CMP is unremarkable. TSH within normal limits. Urine drug screen is negative. Blood alcohol level is negative. MENTAL STATUS EXAMINATION: Patient is a 31 year old female, who is pleasant and cooperative, average grooming, of normal weight with steady gait. Pt. states she slept last night, about 6-7 hours. Speech: Is of a normal rate, soft volume, articulate, coherent, and spontaneous. Pt. is having direct eye contact with provider today, not looking down or away as she did yesterday. Thought processes: Continues to clear, becoming goal-directed. Rate of thoughts: Normal. Thought content: Rational, Logical, no evidence of paranoia. Abstract reasoning and computation: Adequate. Description of associations: Intact. Description of abnormal or psychotic thoughts: Pt. denies visual or auditory hallucinations. Pt. does not feel she has heard a voice in over 24 hours. Pt. appears to have less paranoia than yesterday. Pt. feels she is preoccupied with finishing [employer] school, going to work. Patient denies obsessions or compulsions at present. Pt. denies thoughts of self-harm. Pt. does not appear to be be responding to internal stimuli today. Judgment: Improving. Insight: Improving. Oriented to: Time, person, place and surroundings. Recent and Remote Memory: Pt. feels she has short-term memory issues when she is stressed and/or has not slept. Patient feels this is "clearing ". Attention Span and Concentration: Improving. Language: Normal. Fund of knowledge: Adequate. Mood: "A lot better, way better than yesterday". Pt. feels as though she continues to improve since admission. Affect: Appropriate, flat. DIAGNOSES: 1. Schizoaffective disorder, by history. ASSESSMENT: Patient was found to be walking in halls and is encouraged to continue. Patient is easily engaged, pleasant and cooperative. Patient was noted to be wearing her own clothing. Patient denies all suicidal and homicidal ideation, denies any self-harm thoughts. Patient continues to report some feelings of paranoia as far as people talking about her. Patient feels this is clearing as well. Patient does report now that she feels she would have a better quality of life if she was on medicines as needed per evaluation. Patient continues to brighten daily, more lucid, quicker processing. MANAGEMENT PLAN: Pt's. medication regimen will be evaluated and adjusted accordingly. Patient is agreeable to continue fluoxetine 10 mg po q am, continue Invega sustenna 156 mg in 30 days, continue hydroxyzine 25 mg by mouth every 6 hours when necessary for agitation or anxiety, trazodone 50 mg by mouth daily at bedtime when necessary for sleep. Maintain safety precautions. Patient to attend groups and participate in unit programming to develop coping strategies. Patient to be engaged in discharge planning process to ensure safe and effective discharge plan. Patient to follow-up with PCP upon discharge. Patient to schedule and attend outpatient therapy and medication management appointments. TIME SPENT: 25 minutes Vital Signs Vital Signs Date Time Temp Pulse Resp B/P Pulse Ox O2 Delivery O2 Flow Rate FiO2 11/15/16 06:45 97.6 95 16 116/63 Current Medications Current Medications Acetaminophen (Tylenol) 650 mg Q6HP PRN PO HEADACHE or DISCOMFORT; Start at 22:15; Stop 12/09/16 at 22:14 Al Hydrox/Mg Hydrox/Simethicone (Mylanta) 30 ml Q4HP PRN PO HEARTBURN/ INDIGESTION; Start 11/09/16 at 22:15; Stop 12/09/16 at 22:14 Citalopram Hydrobromide (CeleXA) 10 mg DAILY PO Last administered on 11/10/16 12:55; Start 11/10/16 at 09:00; Stop 11/10/16 at 15:00; Status DC Citalopram Hydrobromide (CeleXA) 10 mg QAM PO Last administered on 11/14/16 08 :47; Start 11/14/16 at 09:00; Stop 11/14/16 at 18:15; Status DC Citalopram Hydrobromide (CeleXA) 20 mg DAILY PO Last administered on 11/13/16 08:35; Start 11/11/16 at 09:00; Stop 11/13/16 at 20:18; Status DC Fluoxetine HCl (PROzac) 10 mg QAM PO Last administered on 11/15/16 09:11; Start 11/14/16 at 09:00; Stop 12/14/16 at 08:59 Home Med (Med Rec Complete!) ASDIRECTED XX ; Start 11/09/16 at 20:15; Stop at 20:17; Status DC Hydroxyzine HCl (Vistaril) 25 mg Q6HP PRN PO ANXIETY Last administered on 20:02; Start 11/09/16 at 22:30; Stop 12/09/16 at 22:29 Magnesium Hydroxide (Milk Of Magnesia) 30 ml DAILYPRN PRN PO CONSTIPATION; Start 11/09/16 at 22:15; Stop 12/09/16 at 22:14 Paliperidone (Invega) 3 mg QAM PO Last administered on 11/14/16 08:47; Start 11/14/16 at 09:00; Stop 11/14/16 at 18:15; Status DC Pantoprazole Sodium (Protonix) 20 mg DAILY PO Last administered on 11/15/16 09 :11; Start 11/10/16 at 09:00; Stop 12/10/16 at 08:59 Polyethylene Glycol (Miralax) 1 pkt DAILYPRN PRN PO CONSTIPATION; Start at 22:15; Stop 12/09/16 at 22:14 Risperidone (RisperDAL) 1 mg QHS PO Last administered on 11/13/16 20:02; Start 11/12/16 at 21:00; Stop 11/13/16 at 20:18; Status DC Risperidone (RisperDAL) 1 mg QHS PO ; Start 11/13/16 at 21:00; Stop 11/13/16 at 21:00; Status DC Risperidone (RisperDAL) 2 mg BID PO Last administered on 11/12/16 08:55; Start 11/10/16 at 09:00; Stop 11/12/16 at 20:01; Status DC Trazodone HCl (Desyrel) 50 mg QHSP PRN PO INSOMNIA Last administered on 20:02; Start 11/09/16 at 22:15; Stop 12/09/16 at 22:14 Allergies Coded Allergies: No Known Allergies (Unverified , 07/31/16) DAT ALEXIS NP Nov 15, 2016 18:31
[2016-11-16 06:57] VITALS: BP 129/63
[2016-11-16] MEDS: PANTOPRAZOLE 20 MG TAB PO SCH (09:11)
[2016-11-16] MEDS: FLUoxetine 10 MG CAP PO SCH (09:11)
--- NOTE | 2016-11-16 11:57 | IPNPDOC ---
[facility] Progress Note Progress Note DATE OF SERVICE: 11/16/16 HISTORY : 31-year-old female with a history of schizoaffective disorder, admitted to our unit on a 9.39 legal status. 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 During the evaluation in the emergency room, it is stated that the patient is feeling "very overwhelmed" as though something bad was going to happen. She is in the [employer] program and is about to graduate with honors. The patient reports an inability to sleep lately. She took pills today before going to her examination at [facility]. The patient stated that she wanted to go to sleep and not wake up. Also, that she does not deserve to be successful. The patient was treated for schizoaffective disorder in 2010, but since then has not been in treatment or taking medications and apparently doing well. The patient reported paranoid delusions for a couple of days. The patient has been needing to get assistance for getting dressed and has not been caring for herself as usual. Her spouse Tristin said that she has been having difficulty sleeping, having increasing anxiety and paranoia since 10/27/2016. She has been paranoid about him leaving her or her parents who live with them that she believes that they are against her. noted to say that the patient has been anxious and depressed. During the interview today, the patient is sitting up in the bed. She is selectively mute and unable to answer questions. MD could not gather any information from the patient on admit. PSYCHIATRIC HISTORY: As above. According to the chart, the patient has schizoaffective disorder. PAST MEDICAL HISTORY: According to the chart, the patient suffers from gastroesophageal reflux disease (GERD) and is on Nexium 20 mg daily. VITAL SIGNS: Please see below. 97.6 79 20 129/63 CURRENT MEDICATIONS: See below. Fluoxetine 10 mg po q am, Invega 234 mg IM, received 11/15/15, may need 2nd dose of 156 in a week, Hydroxyzine hcl 25 mg po q6h prn A/A, Trazodone 50 mg po qhs prn for insomnia. NEW TEST RESULTS: On admission - Complete blood count (CBC) is unremarkable except platelet count of 458. CMP is unremarkable. TSH within normal limits. Urine drug screen is negative. Blood alcohol level is negative. MENTAL STATUS EXAMINATION: Patient is a 31 year old female, who is pleasant and cooperative, average grooming, of normal weight with steady gait. Pt. is noted to be wearing her own clothes. Pt. states she didn't sleep well last night, about 4 hours. Pt. states she didn't take trazodone as she was having some paranoia. Pt. is OK with med being changed to scheduled from prn. Speech: Is of a normal rate, soft volume, articulate, coherent, and spontaneous. Pt. is having direct eye contact with provider today, not looking down or away as she has recently. Thought processes: Continues to clear, becoming goal-directed. More logical each day. Rate of thoughts: Normal. Thought content: Rational, Logical, some paranoia. Abstract reasoning and computation: Adequate. Description of associations: Intact. Description of abnormal or psychotic thoughts: Pt. denies visual or auditory hallucinations. Pt. does not feel she has heard a voice in over 48 hours. Pt. appears to have more paranoia than yesterday. Did not take PRN sleep med due to paranoia, feels people are singling her out, talking about her, etc. Pt. feels she is preoccupied with finishing [employer] school, getting back to work. Patient denies obsessions or compulsions at present. Pt. denies thoughts of self-harm. Pt. does not appear to be be responding to internal stimuli. Judgment: Fair. Insight: Fair. Oriented to: Time, person, place and surroundings. Recent and Remote Memory: Pt. feels she has short-term memory issues when she is stressed and/or has not slept. Patient feels this is "clearing". Attention Span and Concentration: Improving. Language: Normal. Fund of knowledge: Adequate. Mood: "I'm a lot happier, I made conversation at lunch". Pt. feels as though she continues to improve each day. Affect: Appropriate, flat. DIAGNOSES: 1. Schizoaffective disorder, by history. ASSESSMENT: Patient was found to be walking in halls and is encouraged to continue. Patient is easily engaged, pleasant and cooperative. Patient was noted to be wearing her own clothing. Patient denies all suicidal and homicidal ideation, denies any self-harm thoughts. Patient continues to report some feelings of paranoia as far as people talking about her. Patient feels this is clearing as well. Patient does report now that she feels she would have a better quality of life if she was on medicines as needed per evaluation. Patient continues to be getting clearer daily. Pt. concerned about canceling Saturday appt. at [place], DP will call and reschedule. MANAGEMENT PLAN: Pt's. medication regimen will be evaluated and adjusted accordingly. Patient is agreeable to continue fluoxetine 10 mg po q am, continue Invega Sustenna 156 mg in possibly 1 week, then 30 days, continue hydroxyzine 25 mg by mouth every 6 hours when necessary for agitation or anxiety , trazodone 50 mg by mouth daily at bedtime, changed to scheduled med for sleep. Maintain safety precautions. Patient to attend groups and participate in unit programming to develop coping strategies. Patient to be engaged in discharge planning process to ensure safe and effective discharge plan. Patient to follow-up with PCP upon discharge. Patient to schedule and attend outpatient therapy and medication management appointments. TIME SPENT: 25 minutes Vital Signs Vital Signs Date Time Temp Pulse Resp B/P Pulse Ox O2 Delivery O2 Flow Rate FiO2 11/16/16 09:29 97.6 11/16/16 06:57 79 20 129/63 Current Medications Current Medications Medications (Trade) Dose Ordered Sig/Radha Route PRN Reason Start Time Stop Time Status Last Admin Dose Admin Acetaminophen (Tylenol) 650 mg Q6HP PRN PO HEADACHE or DISCOMFORT 11/09/16 22:15 12/09/16 22:14 Al Hydrox/Mg Hydrox/Simethicone (Mylanta) 30 ml Q4HP PRN PO HEARTBURN/INDIGESTION 11/09/16 22:15 12/09/16 22:14 Citalopram Hydrobromide (CeleXA) 10 mg DAILY PO 11/10/16 09:00 11/10/16 15:00 DC 11/10/16 12:55 Citalopram Hydrobromide (CeleXA) 10 mg QAM PO 11/14/16 09:00 11/14/16 18:15 DC 11/14/16 08:47 Citalopram Hydrobromide (CeleXA) 20 mg DAILY PO 11/11/16 09:00 11/13/16 20:18 DC 11/13/16 08:35 Fluoxetine HCl (PROzac) 10 mg QAM PO 11/14/16 09:00 12/14/16 08:59 11/16/16 09:11 Home Med (Med Rec Complete!) ASDIRECTED XX 11/09/16 20:15 11/09/16 20:17 DC Hydroxyzine HCl (Vistaril) 25 mg Q6HP PRN PO ANXIETY 11/09/16 22:30 12/09/16 22:29 11/13/16 20:02 Magnesium Hydroxide (Milk Of Magnesia) 30 ml DAILYPRN PRN PO CONSTIPATION 11/09/16 22:15 12/09/16 22:14 Paliperidone (Invega) 3 mg QAM PO 11/14/16 09:00 11/14/16 18:15 DC 11/14/16 08:47 Pantoprazole Sodium (Protonix) 20 mg DAILY PO 11/10/16 09:00 12/10/16 08:59 11/16/16 09:11 Polyethylene Glycol (Miralax) 1 pkt DAILYPRN PRN PO CONSTIPATION 11/09/16 22:15 12/09/16 22:14 Risperidone (RisperDAL) 1 mg QHS PO 11/12/16 21:00 11/13/16 20:18 DC 11/13/16 20:02 Risperidone (RisperDAL) 1 mg QHS PO 11/13/16 21:00 11/13/16 21:00 DC Risperidone (RisperDAL) 2 mg BID PO 11/10/16 09:00 11/12/16 20:01 DC 11/12/16 08:55 Trazodone HCl (Desyrel) 50 mg QHSP PRN PO INSOMNIA 11/09/16 22:15 12/09/16 22:14 11/13/16 20:02 Allergies Coded Allergies: No Known Allergies (Unverified , 07/31/16) DAT ALEXIS NP Nov 16, 2016 11:57
[2016-11-16 18:18] VITALS: BP 126/68
[2016-11-16] MEDS ORDERED: traZODone 50 MG TAB PO SCH (21:00)
[2016-11-16] MEDS ORDERED: traZODone 50 MG TAB PO PRN (21:00)
[2016-11-16] MEDS: traZODone 50 MG TAB PO SCH (21:27)
[2016-11-17 06:30] VITALS: BP 132/69
[2016-11-17] MEDS: FLUoxetine 10 MG CAP PO SCH (09:47)
[2016-11-17] MEDS: PANTOPRAZOLE 20 MG TAB PO SCH (09:47)
[2016-11-17 18:06] VITALS: BP 127/70
[2016-11-17] MEDS: traZODone 50 MG TAB PO SCH (21:36)
[2016-11-18 06:12] VITALS: BP 107/61
[2016-11-18] MEDS: PANTOPRAZOLE 20 MG TAB PO SCH (09:30)
[2016-11-18] MEDS: FLUoxetine 10 MG CAP PO SCH (09:30)
[2016-11-18 18:00] VITALS: BP 129/74
[2016-11-18] MEDS: traZODone 50 MG TAB PO SCH (21:42)
--- NOTE | 2016-11-18 23:47 | IPNPDOC ---
[facility] Progress Note Progress Note DATE OF SERVICE: 11/18/16 HISTORY: . VITAL SIGNS: See below. NEW TEST RESULTS: . CURRENT MEDICATIONS: See below. MENTAL STATUS EXAMINATION: Patient is a -year-old who appears than the stated age. Speech: Is [pressured, tangential, circumstantial, flight of ideas, [ normal in rate, volume, and articulation, and is coherent and spontaneous]. Language skills are intact. Thought processes including: [clear, Not goal- directed or Goal directed]. Thought content: [irrational, logical, illogical, tangential, paranoid]. Abstract reasoning, and computation: . Description of associations: [loose, tangential, circumstantial, intact]. Description of abnormal or psychotic thoughts: [hallucinations, delusions, preoccupation with violence, homicidal or suicidal ideation, and obsessions]. Judgment: [fair, good , very limited, poor,]. Insight: [very limited, good, fair. poor]. Orientation to [time, place and person]. Recent and remote memory: [Immediate, short-term and long-term memory is intact]. Attention span and concentration: [Poor, good, fair]. Language: [Normal]. Fund of knowledge: [adequate, intact, poor, fair, good]. Mood: [irrational, elated, irritable, distracted, depressed, anxious, restricted, neutral, fully communicative]. Affect: [appropriate, reactive, flat , constricted, animated, irrational, expansive, restricted, depressed, anxious, agitated, hypomania, lability]. DIAGNOSES: 1. . 2. . 3. . ASSESSMENT: MANAGEMENT PLAN: . TIME SPENT: minutes. Vital Signs Vital Signs Date Time Temp Pulse Resp B/P Pulse Ox O2 Delivery O2 Flow Rate FiO2 11/18/16 18:00 97.4 88 16 129/74 Current Medications Current Medications Medications (Trade) Dose Ordered Sig/Radha Route PRN Reason Start Time Stop Time Status Last Admin Dose Admin Acetaminophen (Tylenol) 650 mg Q6HP PRN PO HEADACHE or DISCOMFORT 11/09/16 22:15 12/09/16 22:14 Al Hydrox/Mg Hydrox/Simethicone (Mylanta) 30 ml Q4HP PRN PO HEARTBURN/INDIGESTION 11/09/16 22:15 12/09/16 22:14 Citalopram Hydrobromide (CeleXA) 10 mg DAILY PO 11/10/16 09:00 11/10/16 15:00 DC 11/10/16 12:55 Citalopram Hydrobromide (CeleXA) 10 mg QAM PO 11/14/16 09:00 11/14/16 18:15 DC 11/14/16 08:47 Citalopram Hydrobromide (CeleXA) 20 mg DAILY PO 11/11/16 09:00 11/13/16 20:18 DC 11/13/16 08:35 Fluoxetine HCl (PROzac) 10 mg QAM PO 11/14/16 09:00 12/14/16 08:59 11/18/16 09:30 Home Med (Med Rec Complete!) ASDIRECTED XX 11/09/16 20:15 11/09/16 20:17 DC Hydroxyzine HCl (Vistaril) 25 mg Q6HP PRN PO ANXIETY 11/09/16 22:30 12/09/16 22:29 11/13/16 20:02 Magnesium Hydroxide (Milk Of Magnesia) 30 ml DAILYPRN PRN PO CONSTIPATION 11/09/16 22:15 12/09/16 22:14 Paliperidone (Invega) 3 mg QAM PO 11/14/16 09:00 11/14/16 18:15 DC 11/14/16 08:47 Pantoprazole Sodium (Protonix) 20 mg DAILY PO 11/10/16 09:00 12/10/16 08:59 11/18/16 09:30 Polyethylene Glycol (Miralax) 1 pkt DAILYPRN PRN PO CONSTIPATION 11/09/16 22:15 12/09/16 22:14 Risperidone (RisperDAL) 1 mg QHS PO 11/12/16 21:00 11/13/16 20:18 DC 11/13/16 20:02 Risperidone (RisperDAL) 1 mg QHS PO 11/13/16 21:00 11/13/16 21:00 DC Risperidone (RisperDAL) 2 mg BID PO 11/10/16 09:00 11/12/16 20:01 DC 11/12/16 08:55 Trazodone HCl (Desyrel) 50 mg QHS PO 11/16/16 21:00 11/16/16 21:00 DC Trazodone HCl (Desyrel) 50 mg QHS PO 11/16/16 21:00 12/16/16 20:59 11/18/16 21:42 Trazodone HCl (Desyrel) 50 mg QHS PRN PO INSOMNIA 11/16/16 21:00 11/16/16 21:00 DC Trazodone HCl (Desyrel) 50 mg QHSP PRN PO INSOMNIA 11/09/16 22:15 11/16/16 16:05 DC 11/13/16 20:02 Allergies Coded Allergies: No Known Allergies (Unverified , 07/31/16) SARAH PEARSON MD Nov 18, 2016 23:47
[2016-11-19 06:00] VITALS: BP 94/51
[2016-11-19] MEDS: PANTOPRAZOLE 20 MG TAB PO SCH (09:09)
[2016-11-19] MEDS: FLUoxetine 10 MG CAP PO SCH (09:09)
[2016-11-19] MEDS ORDERED: PALIPERIDONE PALMITATE 156 MG/1ML INJ(INVEGA SUSTENNA)(J2426) IM ONE (11:00)
--- NOTE | 2016-11-19 13:36 | IPNPDOC ---
[facility] Progress Note Progress Note DATE OF SERVICE: 11/19/16 HISTORY : 31-year-old female with a history of schizoaffective disorder, admitted to our unit on a 9.39 legal status. 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 During the evaluation in the emergency room, it is stated that the patient is feeling "very overwhelmed" as though something bad was going to happen. She is in the [employer] program and is about to graduate with honors. The patient reports an inability to sleep lately. She took pills today before going to her examination at [facility]. The patient stated that she wanted to go to sleep and not wake up. Also, that she does not deserve to be successful. The patient was treated for schizoaffective disorder in 2010, but since then has not been in treatment or taking medications and apparently doing well. The patient reported paranoid delusions for a couple of days. The patient has been needing to get assistance for getting dressed and has not been caring for herself as usual. Her spouse Tristin said that she has been having difficulty sleeping, having increasing anxiety and paranoia since 10/27/2016. She has been paranoid about him leaving her or her parents who live with them that she believes that they are against her. noted to say that the patient has been anxious and depressed. During the interview today, the patient is sitting up in the bed. She is selectively mute and unable to answer questions. MD could not gather any information from the patient on admit. PSYCHIATRIC HISTORY: As above. According to the chart and patient, the patient has schizoaffective disorder. PAST MEDICAL HISTORY: According to the chart and patient, the patient suffers from gastroesophageal reflux disease (GERD) and is on Nexium 20 mg daily. VITAL SIGNS: Please see below. 98.6 86 16 94/51 CURRENT MEDICATIONS: See below. Fluoxetine 10 mg po q am, Invega 234 mg IM, received 11/15/15, received 2nd dose of 156mg today, Hydroxyzine hcl 25 mg po q6h prn A/A, Trazodone 50 mg po qhs prn for insomnia. NEW TEST RESULTS: On admission - Complete blood count (CBC) is unremarkable except platelet count of 458. CMP is unremarkable. TSH within normal limits. Urine drug screen is negative. Blood alcohol level is negative. MENTAL STATUS EXAMINATION: Patient is a 31 year old female, who is pleasant and cooperative, average grooming, of normal weight with steady gait. Pt. is noted to be wearing her own clothes. Pt. states she is sleeping better. Pt. is using trazodone regularly since change to scheduled med. Speech: Is of a normal rate, soft volume, articulate, coherent, and spontaneous. Pt. is having direct eye contact with provider today, not looking down or away as she has previously. Thought processes: Continues to clear and more goal-directed. More logical, rational each day. Rate of thoughts: Normal. Thought content: Rational, Logical, Only slight paranoia per patient. Abstract reasoning and computation: Adequate. Description of associations: Intact. Description of abnormal or psychotic thoughts: Pt. denies visual or auditory hallucinations. Pt. does not feel she has heard a voice in over 5 days, is relieved about this. Pt. appears to have slight paranoia lingering, more noticeable with unexpected situations or change. Pt. feels she is now just concerned with finishing [employer] school, getting back to work. Patient denies obsessions or compulsions at present. Pt. denies thoughts of self-harm. Pt. does not appear to be be responding to internal stimuli. Pt. denies SI/HI. Judgment: Fair. Insight: Fair. Oriented to: Time, person, place and surroundings. Recent and Remote Memory: Pt. feels she has short-term memory issues when she is stressed and/or has not slept. Patient feels this is "OK" today. Attention Span and Concentration: Good. Language: Normal. Fund of knowledge: Adequate. Mood: "Well, it's pretty good". On the weekend "Went pretty well because I opened up more". Pt. states she actually enjoyed karaoke. Pt. feels she is improving each day. Affect: Appropriate, bright at times, smiling at times appropriately. DIAGNOSES: 1. Schizoaffective disorder, by history. ASSESSMENT: Patient was found to be walking in halls and is encouraged to continue. Patient is easily engaged, pleasant and cooperative. Patient was noted to be wearing her own clothing. Patient denies all suicidal and homicidal ideation, denies any self-harm thoughts. Patient continues to report slight paranoia with stress or change. Patient feels this is getting better each day as well. Patient does report now that she feels she would have a better quality of life if she was on medicines as needed per evaluation. Patient continues to be clearing daily. Pt. states Depression today is 3/10, Anxiety is 4/10. Pt. states her baseline when home for depression is 2/10, anxiety is 2-4/10. MANAGEMENT PLAN: Pt's. medication regimen will be evaluated and adjusted accordingly. Patient is agreeable to continue fluoxetine 10 mg po q am, received Invega Sustenna 156 mg IM today, then q 30 days, continue hydroxyzine 25 mg by mouth every 6 hours when necessary for agitation or anxiety, trazodone 50 mg by mouth daily at bedtime, for sleep. Maintain safety precautions. Patient to attend groups and participate in unit programming to develop coping strategies. Patient to be engaged in discharge planning process to ensure safe and effective discharge plan. land planner is checking for preauthorization status for Invega sustenna injection, as it is not covered by [employer]. land planner is also attempting to change pt. PCP if possible per patient request. Patient to follow-up with PCP upon discharge. Patient to schedule and attend outpatient therapy and medication management appointments. TIME SPENT: 25 minutes Vital Signs Vital Signs Date Time Temp Pulse Resp B/P Pulse Ox O2 Delivery O2 Flow Rate FiO2 11/19/16 06:00 98.6 86 16 94/51 Current Medications Current Medications Medications (Trade) Dose Ordered Sig/Radha Route PRN Reason Start Time Stop Time Status Last Admin Dose Admin Acetaminophen (Tylenol) 650 mg Q6HP PRN PO HEADACHE or DISCOMFORT 11/09/16 22:15 12/09/16 22:14 Al Hydrox/Mg Hydrox/Simethicone (Mylanta) 30 ml Q4HP PRN PO HEARTBURN/INDIGESTION 11/09/16 22:15 12/09/16 22:14 Citalopram Hydrobromide (CeleXA) 10 mg DAILY PO 11/10/16 09:00 11/10/16 15:00 DC 11/10/16 12:55 Citalopram Hydrobromide (CeleXA) 10 mg QAM PO 11/14/16 09:00 11/14/16 18:15 DC 11/14/16 08:47 Citalopram Hydrobromide (CeleXA) 20 mg DAILY PO 11/11/16 09:00 11/13/16 20:18 DC 11/13/16 08:35 Fluoxetine HCl (PROzac) 10 mg QAM PO 11/14/16 09:00 12/14/16 08:59 11/19/16 09:09 Home Med (Med Rec Complete!) ASDIRECTED XX 11/09/16 20:15 11/09/16 20:17 DC Hydroxyzine HCl (Vistaril) 25 mg Q6HP PRN PO ANXIETY 11/09/16 22:30 12/09/16 22:29 11/13/16 20:02 Magnesium Hydroxide (Milk Of Magnesia) 30 ml DAILYPRN PRN PO CONSTIPATION 11/09/16 22:15 12/09/16 22:14 Paliperidone (Invega) 3 mg QAM PO 11/14/16 09:00 11/14/16 18:15 DC 11/14/16 08:47 Pantoprazole Sodium (Protonix) 20 mg DAILY PO 11/10/16 09:00 12/10/16 08:59 11/19/16 09:09 Polyethylene Glycol (Miralax) 1 pkt DAILYPRN PRN PO CONSTIPATION 11/09/16 22:15 12/09/16 22:14 Risperidone (RisperDAL) 1 mg QHS PO 11/12/16 21:00 11/13/16 20:18 DC 11/13/16 20:02 Risperidone (RisperDAL) 1 mg QHS PO 11/13/16 21:00 11/13/16 21:00 DC Risperidone (RisperDAL) 2 mg BID PO 11/10/16 09:00 11/12/16 20:01 DC 11/12/16 08:55 Trazodone HCl (Desyrel) 50 mg QHS PO 11/16/16 21:00 11/16/16 21:00 DC Trazodone HCl (Desyrel) 50 mg QHS PO 11/16/16 21:00 12/16/16 20:59 11/18/16 21:42 Trazodone HCl (Desyrel) 50 mg QHS PRN PO INSOMNIA 11/16/16 21:00 11/16/16 21:00 DC Trazodone HCl (Desyrel) 50 mg QHSP PRN PO INSOMNIA 11/09/16 22:15 11/16/16 16:05 DC 11/13/16 20:02 Allergies Coded Allergies: No Known Allergies (Unverified , 07/31/16) DAT ALEXIS NP Nov 19, 2016 13:36
[2016-11-19 18:00] VITALS: BP 133/92
[2016-11-19] MEDS ORDERED: HYDR25T PO (18:20)
[2016-11-19] MEDS ORDERED: FLUO10CA9 PO (18:20)
[2016-11-19] MEDS ORDERED: TRAZO50TA PO (18:20)
[2016-11-19] MEDS ORDERED: INVE156I IM (19:07)
[2016-11-19] MEDS: traZODone 50 MG TAB PO SCH (21:14)
[2016-11-20 06:46] VITALS: BP 150/67
[2016-11-20] MEDS: PANTOPRAZOLE 20 MG TAB PO SCH (08:28)
[2016-11-20] MEDS: FLUoxetine 10 MG CAP PO SCH (08:28)
--- NOTE | 2016-11-20 23:00 | DS.PDOC ---
[facility] Discharge Summary Discharge Summary DATE OF ADMISSION: Nov 09, 2016 at 21:30 DATE OF DISCHARGE: Nov 20, 2016 at 11:38 DISCHARGE DIAGNOSES: Schizoaffective disorder. REASON FOR ADMISSION: 31-year-old female with a history of schizoaffective disorder, admitted to our unit on a 9.39 legal status. 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 During the evaluation in the emergency room, it is stated that the patient is feeling "very overwhelmed" as though something bad was going to happen. She is in the [employer] program and is about to graduate with honors. The patient reports an inability to sleep lately. She took pills today before going to her examination at [facility]. The patient stated that she wanted to go to sleep and not wake up. Also, that she does not deserve to be successful. The patient was treated for schizoaffective disorder in 2010, but since then has not been in treatment or taking medications and apparently doing well. The patient reported paranoid delusions for a couple of days. The patient has been needing to get assistance for getting dressed and has not been caring for herself as usual. Her spouse Tristin said that she has been having difficulty sleeping, having increasing anxiety and paranoia since 10/27/2016. She has been paranoid about him leaving her or her parents who live with them that she believes that they are against her. noted to say that the patient has been anxious and depressed. During the interview today, the patient is sitting up in the bed. She is selectively mute and unable to answer questions. MD could not gather any information from the patient on admit. PSYCHIATRIC HISTORY: As above. According to the chart and patient, the patient has schizoaffective disorder. PAST MEDICAL HISTORY: According to the chart and patient, the patient suffers from gastroesophageal reflux disease (GERD) and is on Nexium 20 mg daily. TREATMENT AND PROGRESS ON THE UNIT: Patient was found to be walking in halls and is encouraged to continue. Patient is easily engaged, pleasant and cooperative. Patient was noted to be wearing her own clothing. Patient denies all suicidal and homicidal ideation and is stable, denies any self-harm thoughts. Patient continues to report slight paranoia with stress or change. Patient feels this is getting better each day as well. Patient continues to be clear daily. Pt. states Depression today is 3/10, Anxiety is 2/10. Pt. states her baseline when home for depression is 2/10, anxiety is 2-4/10. Pt. is happy to be going home to and step-daughter. MENTAL STATUS EXAMINATION ON DISCHARGE: Patient is a 31 year old female, who is pleasant and cooperative, average grooming, of normal weight with steady gait. Pt. is noted to be wearing her own clothes. Pt. states she is sleeping better. Pt. is using trazodone regularly since change to scheduled med. Speech: Is of a normal rate, soft volume, articulate, coherent, and spontaneous. Pt. is having direct eye contact with provider today, not looking down or away as she has previously. Thought processes: Continues to clear and more goal-directed. More logical, rational each day. Rate of thoughts: Normal. Thought content: Rational, Logical, Only slight paranoia per patient. Abstract reasoning and computation: Adequate. Description of associations: Intact. Description of abnormal or psychotic thoughts: Pt. denies visual or auditory hallucinations. Pt. does not feel she has heard a voice in over 5 days, is relieved about this. Pt. appears to have slight paranoia but is subsiding, more noticeable with unexpected situations or change. Pt. feels she is now just concerned with finishing [employer] school, getting back to work. Patient denies obsessions or compulsions at present. Pt. denies thoughts of self-harm. Pt. does not appear to be be responding to internal stimuli. Pt. denies SI/HI. Judgment: Fair. Insight: Fair. Oriented to: Time, person, place and surroundings. Recent and Remote Memory: Pt. feels she has short-term memory issues when she is stressed and/or has not slept. Patient feels this is "OK" today. Attention Span and Concentration: Good. Language: Normal. Fund of knowledge: Adequate. Mood: "I am doing pretty good, sad because I am leaving, is "bittersweet". Pt. feels she continues to improve each day. Affect: Appropriate, brighter, smiling at times appropriately. MEDICATIONS ON DISCHARGE: See below. Fluoxetine 10 mg po q am, Invega 156 mg IM, q 30 days from 11/19/16, Hydroxyzine hcl 25 mg po q6h prn A/A, Trazodone 50 mg po qhs prn for insomnia. PLAN/FOLLOWUP ARRANGEMENTS: Pt's. medication regimen will continue to be evaluated and adjusted accordingly by outpatient provider. Patient is agreeable to continue fluoxetine 10 mg po q am, Invega Sustenna 156 mg IM q 30 days, hydroxyzine 25 mg by mouth every 6 hours when necessary for agitation or anxiety , trazodone 50 mg by mouth daily at bedtime, for sleep. digital sales planner has verified that [facility] will be supplying and giving patient her injection for this med, written Rx sent home with pt. for [facility]. Other meds transmitted to [facility] per protocol. Patient to follow-up with PCP upon discharge. Patient to schedule and attend outpatient therapy and medication management appointments. The amount of time spent in the coordination of care for this patient was approximately 25 minutes. Vital Signs Vital Sign - Last 24 Hours 11/20/16 06:46 Temp 98.7 Pulse 62 Resp 16 B/P 150/67 Medications Scheduled Esomeprazole Magnesium Trihydr (Nexium) 20 Mg Cap 20 MG PO DAILY GERD (Reported ) Fluoxetine HCl (Fluoxetine HCl) 10 Mg Cap #7 10 MG PO QAM depression Paliperidone Palmitate (Invega Sustenna) 156 Mg/Ml Inj #1 156 MG IM QMONTH schizoaffective disorder Trazodone HCl (Trazodone HCl) 50 Mg Tab #7 50 MG PO QHS Insomnia Scheduled PRN Hydroxyzine HCl (Hydroxyzine HCl) 25 Mg Tab #20 25 MG PO Q6HP PRN PRN ANXIETY Polyethylene Glycol (Miralax) 1 Pow Pow 17 GM PO DAILY PRN PRN CONSTIPATION ( Reported) Allergies Coded Allergies: No Known Allergies (Unverified , 07/31/16) DAT ALEXIS NP Nov 20, 2016 23:00
== END 2016-11-20 11:38 | disposition home or self-care (01) | DRG 885 ==
LOC: M ED 12:08 → M PSY 21:30
PROVIDERS: ADMIT Psychiatry & Neurology Psychiatry; ATTEND Psychiatry & Neurology Psychiatry
DX: F25.9 Schizoaffective disorder, unspecified (principal); K21.9 Gastro-esophageal reflux disease without esophagitis; Z79.899 Other long term (current) drug therapy